=== PATIENT | female | born 1945 | race Caucasian/White ===

== ENCOUNTER 2017-12-14 10:54 | Outpatient (CLI) ==
--- NOTE | 2017-12-14 12:26 | DI ---
EXAM: Chest two views HISTORY: Cough FINDINGS: Normal cardiac and mediastinal contours. Normal pulmonary vasculature. Lungs are clear. Atherosclerotic calcification of the aorta. No significant abnormality of the bony thorax. IMPRESSION: No acute cardiopulmonary disease
== END 2017-12-14 10:55 | disposition home or self-care (01) ==
LOC: RAD 10:54
PROVIDERS: ATTEND Internal Medicine
DX: R05 Cough (principal)

== ENCOUNTER 2018-03-08 10:33 | Inpatient (IN) ==
[2018-03-08 11:15] VITALS: BMI 31.1
[2018-03-08] MEDS ORDERED: VISTARIL INJ IM PRN (11:18)
[2018-03-08] MEDS ORDERED: MORPHINE 4 MG/ML VIAL IVP PRN (11:18)
[2018-03-08] MEDS ORDERED: NITROSTAT SL PRN (11:18)
[2018-03-08] MEDS ORDERED: TYLENOL PO PRN (11:18)
[2018-03-08] MEDS ORDERED: ATROPINE SULFATE PFS IVP PRN (11:18)
[2018-03-08] MEDS: SODIUM CHLORIDE 1,000 ML IV SCH (11:53)
[2018-03-08] MEDS ORDERED: ULTRAM PO PRN (11:59)
[2018-03-08] MEDS ORDERED: DICLOFENAC SODIUM 1 GM TP PRN (11:59)
[2018-03-08] MEDS: ZITHROMAX PO SCH (12:04)
[2018-03-08] MEDS: ROCEPHIN 1 GM in SODIUM CHLORIDE 50 ML IV SCH (12:05)
[2018-03-08] MEDS: SOLU-CORTEF 250 MG IVP SCH ×2 (13:14→21:42)
[2018-03-08] MEDS: ATIVAN PO SCH (13:17)
[2018-03-08] MEDS: NEURONTIN PO SCH (13:17)
[2018-03-08] MEDS: BETAPACE PO SCH ×2 (13:17→21:24)
[2018-03-08] MEDS: MULTIVITAMIN TABLET PO SCH (13:18)
[2018-03-08] MEDS: COLESTID PO SCH ×2 (13:18→21:23)
[2018-03-08] MEDS: ZYRTEC PO SCH (13:19)
[2018-03-08] MEDS: ZETIA PO SCH (13:19)
--- NOTE | 2018-03-08 13:35 | CT ---
Exam: CT PE protocol with intravenous contrast and 3-D MIP reformatted images. Comparison: Chest x-ray performed 12/14/2017. Reason for exam: Shortness of air. FINDINGS: Consolidations and ground-glass are seen in the right upper, right middle, and right lower lobes. Specifically in the perihilar regions. No pleural effusion or pneumothorax. The heart is not enlarged. The aorta is normal in course and caliber measuring approximately 3.6 cm at the level of the arch. No main, proximal, or segmental pulmonary arterial filling defect is seen. No suspicious appearing osteoblastic or osteolytic lesions. Impression: 1. No main, proximal, or segmental pulmonary arterial filling defect 2. Consolidations with ground-glass in the right upper, right middle, and right lower lobes consiste nt with pneumonia. Imaging is recommended to document resolution
[2018-03-08] MEDS ORDERED: NON-FORMULARY MEDICATION (Rivaroxaban [Xarelto] 20 MG) PO SCH (17:00)
[2018-03-08] MEDS ORDERED: XARELTO PO SCH (17:00)
[2018-03-08] MEDS ORDERED: XOPENEX 1.25 MG NEB STA (20:31)
[2018-03-09] MEDS: SODIUM CHLORIDE 1,000 ML IV SCH (01:45)
[2018-03-09] MEDS: XOPENEX 1.25 MG NEB SCH ×5 (05:45→22:50)
[2018-03-09] MEDS: TROSPIUM CHLORIDE 60 MG PO SCH (06:06)
[2018-03-09] MEDS: SOLU-CORTEF 250 MG IVP SCH ×3 (06:13→20:58)
[2018-03-09] MEDS ORDERED: COLESTID PO SCH (06:30)
[2018-03-09] MEDS: ZITHROMAX PO SCH (08:52)
[2018-03-09] MEDS: BETAPACE PO SCH ×2 (08:52→20:59)
[2018-03-09] MEDS: ZETIA PO SCH (08:52)
[2018-03-09] MEDS: ZYRTEC PO SCH (08:52)
[2018-03-09] MEDS: ROCEPHIN 1 GM in SODIUM CHLORIDE 50 ML IV SCH (08:52)
[2018-03-09] MEDS: ASPIRIN EC PO SCH (08:52)
[2018-03-09] MEDS: NEURONTIN PO SCH (08:52)
[2018-03-09] MEDS: MULTIVITAMIN TABLET PO SCH (08:53)
[2018-03-09] MEDS: ATIVAN PO SCH ×2 (11:38→20:59)
[2018-03-09] MEDS: XARELTO PO SCH (17:15)
[2018-03-09] MEDS: COLESTID PO SCH (21:04)
[2018-03-10] MEDS: SOLU-CORTEF 250 MG IVP SCH ×3 (04:20→21:22)
[2018-03-10] MEDS: XOPENEX 1.25 MG NEB SCH ×4 (05:00→22:03)
[2018-03-10] MEDS: COLESTID PO SCH ×2 (05:35→21:18)
[2018-03-10] MEDS: TROSPIUM CHLORIDE 60 MG PO SCH (07:37)
[2018-03-10] MEDS: ROCEPHIN 1 GM in SODIUM CHLORIDE 50 ML IV SCH (08:44)
[2018-03-10] MEDS: NEURONTIN PO SCH (08:45)
[2018-03-10] MEDS: ZITHROMAX PO SCH (08:45)
[2018-03-10] MEDS: ASPIRIN EC PO SCH (08:45)
[2018-03-10] MEDS: ZYRTEC PO SCH (08:45)
[2018-03-10] MEDS: ZETIA PO SCH (08:45)
[2018-03-10] MEDS: MULTIVITAMIN TABLET PO SCH (08:45)
[2018-03-10] MEDS: BETAPACE PO SCH ×2 (08:45→21:18)
--- NOTE | 2018-03-10 11:16 | PCM.PROG ---
Attending Provider: ATTENDING PROVIDER: Dr. MELISSA YOUSIF This patient is seen with Alma Delia Olvera, Nurse Practitioner. DATE OF SERVICE: 03/10/18 SUBJECTIVE: This 72 year old WHITE/ F was hospitalized 03/08/18. The patient is lying in bed, alert. Cough is improved. Decreased blood in sputum. No fever. Shortness of breath has improved. REVIEW OF SYSTEMS: CONSTITUTIONAL: No night sweats. No fatigue, malaise, lethargy. No fever or chills. HEENT: Eyes: No visual changes. No eye pain. No eye discharge. ENT: No runny nose. No epistaxis. No sinus pain. No odynophagia. No congestion. RESPIRATORY: Cough and congestion. No hemoptysis. Shortness of breath improved. CARDIOVASCULAR: No angina symptoms. No CHF symptoms. No atypical chest pain for CAD. No palpitations. No orthopnea.. GASTROINTESTINAL: No abdominal pain. No nausea or vomiting. No diarrhea or constipation. No hematemesis. No hematochezia. GENITOURINARY: No urgency. No frequency. No dysuria. No hematuria. No obstructive symptoms. No discharge. No pain. No significant abnormal bleeding. MUSCULOSKELETAL: No musculoskeletal pain; no joint swelling. NEUROLOGICAL: Awake, alert, oriented to time, place and person. No headache. No neck pain. No syncope. No seizures. No dizziness. PSYCHIATRIC: Not anxious. No depression. No suicidal thoughts. No homicidal thoughts. SKIN: No rash. No lesions. No wounds. ENDOCRINE: No unexplained weight loss. No weight gain. HEMATOLOGIC/LYMPHATIC: No anemia. No purpura. No petechiae. No prolonged or excessive bleeding. No palpable lymph nodes. PHYSICAL EXAMINATION: GENERAL: The patient is awake, alert and oriented, lying in bed in no distress. VITAL SIGNS: Temperature 98.0 F, Pulse 79, Respiratory Rate 20, BP 144/75, Pulse Ox 92% HEENT: Head normocephalic, atraumatic. Eyes: Extraocular muscles are intact. Pupils are equal, round and reactive to light and accommodation. Ears: No lesions. Nose appeared normal. Throat: No exudate or erythema. NECK: Supple. No JVD, no carotid bruit. No lymphadenopathy or thyromegaly. LUNGS: Diminished breath sounds right side. Clear to auscultation. Percussion note normal. Chest symmetrical. HEART: S1, S2, no S3. No murmurs. No cyanosis or clubbing. No ascites. Pulses: Dorsalis pedis and posterior tibial pulses +1 to +2 both sides. ABDOMEN: Soft. Non-tender. Bowel sounds active. No CVA tenderness. No mass felt. EXTREMITIES: No edema. Full range of motion of all extremities, equal. NEUROLOGIC: No focal deficit. Cranial nerves II through XII are grossly intact. No headache, no double vision or headache. SKIN: Not dry. Intact. Turgor-normal. LYMPHATIC: No palpable lymph nodes/no lymphedema. MUSCULOSKELETAL: Normal joints with no swelling. Muscle tone is normal. LAB REVIEW: 03/10/18 04:30 03/10/18 04:30 03/10/18 04:30: Sodium 141, Potassium 3.9, Chloride 108 H, Carbon Dioxide 26, Anion Gap 10.9, BUN 14, Creatinine 0.75, Estimated GFR (MDRD) 76.00, BUN/ Creatinine Ratio 18.66, Glucose 120 H, Calcium 9.0, Total Bilirubin 0.5, AST 26 , ALT 30, Alkaline Phosphatase 54, Total Protein 5.5 L, Albumin 3.0 L, Globulin 2.5, Albumin/Globulin Ratio 1.20 03/10/18 04:30: WBC 11.25 H D, RBC 3.56 L, Hgb 10.7 L, Hct 31.8 L, MCV 89.3, MCH 30.1, MCHC 33.6, RDW Coeff of Jose 13.2, Plt Count 152, Immature Gran % (Auto ) 0.4, Neut % (Auto) 84.7, Lymph % (Auto) 10.4, [place] % (Auto) 4.4, Eos % (Auto) 0.0, Baso % (Auto) 0.1, Immature Gran # (Auto) 0.1, Neut # (Auto) 9.5 H, Lymph # (Auto) 1.2, [place] # (Auto) 0.5, Eos # (Auto) 0.0, Baso # (Auto) 0.0 03/08/18 12:30: Mycoplasma pneumon IgG 447 H, Mycoplasma pneumon IgM < 770 ASSESSMENT: . 1. Right upper middle and lower lobe pneumonia 2. Shortness of breath resolved 3. History of atrial fibrillation PLAN: 1. Anticipate d/c home tomorrow Plan and coordination of the patient's care discussed in the presence of Manufacturing Industrial Engineer and nurse. CONDITION: Stable SCRIBED BY: CIARRA OBRIEN Production Cook scribed while in presence of service performed by Dr. Yousif/Alma Delia Olvera APRN on 03/10/18 ([id number])
--- NOTE | 2018-03-10 11:29 | PN ---
DATE OF SERVICE: 03/09/18 SUBJECTIVE: 72 year old female hospitalized with cough and shortness of breath. The patient has pneumonia in right lung. The patient's condition has improved and she feeling a lot better. REVIEW OF SYSTEMS: CONSTITUTIONAL: No night sweats. No fatigue, malaise, lethargy. No fever or chills. HEENT: Eyes: No visual changes. No eye pain. No eye discharge. ENT: No runny nose. No epistaxis. No sinus pain. No sore throat. No odynophagia. No congestion. RESPIRATORY: Mild cough, no congestion. No hemoptysis. No shortness of breath. CARDIOVASCULAR: No angina symptoms. No CHF symptoms. No atypical chest pain for CAD. No palpitations. No orthopnea. GASTROINTESTINAL: No abdominal pain. No nausea or vomiting. No diarrhea or constipation. No hematemesis. No hematochezia. Appetite has improved. GENITOURINARY: No urgency. No frequency. No dysuria. No hematuria. No obstructive symptoms. No discharge. No pain. No significant abnormal bleeding. MUSCULOSKELETAL: No musculoskeletal pain; no joint swelling. NEUROLOGICAL: No headache. No neck pain. No syncope. No seizures. No dizziness. PSYCHIATRIC: Not anxious. No depression. No suicidal thoughts. No homicidal thoughts. SKIN: No rash. No lesions. No wounds. ENDOCRINE: No unexplained weight loss. No weight gain. HEMATOLOGIC/LYMPHATIC: No anemia. No purpura. No petechiae. No prolonged or excessive bleeding. No palpable lymph nodes. PHYSICAL EXAMINATION: GENERAL: The patient is oriented to time, place and person. VITAL SIGNS: Temperature 97.9, pulse 80, respiratory rate 14, blood pressure 110/74 and pulse ox 97%. HEENT: Head normocephalic, atraumatic. Eyes: Extraocular muscles are intact. Pupils are equal, round and reactive to light and accommodation. Ears: No lesions. Nose appeared normal. Throat: No exudate or erythema. NECK: Supple. No JVD, no carotid bruit. No lymphadenopathy or thyromegaly. LUNGS: Few creps on the right side. Clear to auscultation. Percussion note normal. Chest symmetrical. HEART: S1, S2, no S3. No murmurs. No cyanosis or clubbing. No ascites. Pulses: Dorsalis pedis and posterior tibial pulses +1 to +2 both sides. ABDOMEN: Soft. Nontender. Bowel sounds active. No CVA tenderness. No mass felt. EXTREMITIES: No edema. Full range of motion of all extremities, equal. NEUROLOGIC: No focal deficit. Cranial nerves II through XII are grossly intact. No headache, no double vision or headache. SKIN: Not dry. Intact. Turgor - normal. LYMPHATIC: No palpable lymph nodes/no lymphedema. MUSCULOSKELETAL: Normal joints with no swelling. Muscle tone is normal. LABS: EKG atrial fibrillation, ST-T wave changes noted. Hgb 11.4, hct 34, WBC 17,000 normal differential, creatinine 0.7, BUN 13. ASSESSMENT: 1. Pneumonia, seems to be responding to Rocephin and Zithromax PLAN: 1. Steroids 2. NEBS 3. Will discontinue IV fluids 4. Her appetite is better 5. We will put her on Regular diet CONDITION: Stable. TIME SPENT: More than 30 minutes. Plan and coordination of the patient's care discussed in the presence of nurse. FERNANDO
--- NOTE | 2018-03-10 12:42 | HP ---
DATE OF SERVICE: 03/08/18 REASON FOR HOSPITALIZATION/ HISTORY OF PRESENT ILLNESS: Sinus drainage, gagging, wheezing and vomiting x1-blood. The patient has been coughing up blood with shortness of breath with chills with AM. PAST MEDICAL HISTORY: Atrial fibrillation Bladder spasms Anemia Osteoarthritis Hypertension PAST SURGICAL HISTORY: Gallbladder Hysterectomy 1990 REVIEW OF SYSTEMS: CONSTITUTIONAL: Fever, Fatigue. HEENT: Sinus drainage, no sore throat. RESPIRATORY: Cough, no congestion. Hemoptysis. CARDIOVASCULAR: No atypical chest pain for coronary artery disease. No angina , CHF symptoms, palpitations. Shortness of breath. GASTROINTESTINAL: No melena or abdominal pain. No GERD.Vomiting. GENITOURINARY: No hematuria, no prostatism, no polyuria. PRECONSTRUCTION MANAGER: No blackout, no dizziness, no headache, no double vision. MUSCULOSKELETAL: Osteoarthritis pain, no joint swelling. ENDOCRINE: No weight loss, no weight gain. SKIN: Not dry, no rash. PSYCHIATRIC: Not anxious, no depression, no suicidal thoughts, no homicidal thoughts. SOCIAL HISTORY: Marital Status: Alcohol Usage: No. Tobacco Usage: No. FAMILY HISTORY: Father prostate cancer Mother pancreatic cancer Brother 0 Sister 0 MEDICATIONS: Ativan 0.5mg PO daily PRN Betapace 80mg PO twice a day Celebrex 200mg PO three times per week PRN Colestid 1 gram PO twice a day Lomotil 2.5-0.025PO daily PNR Neurontin 300mg PO daily [place] XR 60mg PO daily Voltaren 1% gel apply two g to the affected area by topical route three times per day PRN Zetia 10mg tablet PO daily Cetirizine 10mg PO daily Tramadol 50mg PO two time per day as needed PRN Xarelto 20mg PO daily Calcium with Vitamin D ALLERGIES: Amoxil Codeine Crestor Erythrocin Opioids Penicillins Sulfa Tetracycline PHYSICAL EXAMINATION: V/S: Pulse 107, blood pressure 102/78, temperature 98.4, oxygen saturation 94%. GENERAL APPEARANCE: Oriented times three. Pale, sweating. HEENT: Normal. NECK: No JVP, no bruits. RESPIRATORY: Decreased breath sounds with few creps. CARDIOVASCULAR: S1, S2, no S3, no murmurs. Irregular, tachy. No cyanosis, clubbing. No ascites. GI/ABDOMEN: No tenderness. Bowel sounds are active. EXTREMITIES: edema, pulses +1, equal. PRECONSTRUCTION MANAGER: Deep tendon reflexes, sensory, motor and gait all normal. RECTAL: 05/19 Dr. Green/PELVIC: Dr. Griffin, Mammogram 2017 [facility]. LABS: CTE with PE protocol shows consolidations, ground glass in right upper, middle and lower lobes consistent with pneumonia. ABG's on room air pH 7.497, pCO2 30.8 , pO2 62, base excesses of 1, bicarb 23.8, TCO2 25, O2 98. Sodium 139, potassium 3.9, BUN 14, creatinine 0.84, glucose 106, troponin 0.6420. Urine 2+ blood, 1+ ketones, WBC 20.24, hgb 13.1, hct 39.4, plt count 178. ASSESSMENT: 1. Cough 2. Shortness of breath 3. Hemoptysis 4. Atrial fibrillation with increased RVR 5. Atrial fibrillation-Xarelto 6. Anemia 7. Dyslipidemia 8. Generalized osteoarthritis 9. 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 Discontinue Celebrex 2. Routine Telemetry orders 3. CBC/CMP now and daily 4. Chest x-ray now 5. Tylenol 650mg Q 4 hours PRN fever 6. O2 @ 1-2 liters PRN nasal canula 7. Rocephin 1 gram IV daily 8. Zithromax 500mg PO daily x3 days 9. Sputum culture 10.Blood culture x2 11.ABG on room air 12.CT protocol for PE 13.Solu-Cortef 125mg IV Q 8 hours 14.Normal Saline at 75cc hour. 15.Legionella and Mycoplasma titer TIME SPENT: More than 70 minutes. MTDD
--- NOTE | 2018-03-10 15:48 | DI ---
EXAM: CHEST FRONTAL AND LATERAL VIEWS HISTORY: Abnormal CT indicating right-sided infiltrates, radiographic follow-up. COMPARISON: CT chest of 03/08/2018 FINDINGS: Heart size upper limit normal. There is mild atherosclerotic disease suggested. Patchy d ensities are seen in the mid to lower right lung although this is probably improved since recent CT. Left lung clear. No pleural fluid. IMPRESSION: Probable improvement in right lung infiltrates. Follow-up chest imaging is recommended to assure com plete clearance.
[2018-03-10] MEDS: XARELTO PO SCH (17:35)
[2018-03-10] MEDS: ATIVAN PO SCH (21:18)
[2018-03-11] MEDS: XOPENEX 1.25 MG NEB SCH ×2 (04:38→11:17)
[2018-03-11] MEDS: COLESTID PO SCH (05:36)
[2018-03-11] MEDS: TROSPIUM CHLORIDE 60 MG PO SCH (05:38)
[2018-03-11] MEDS: SOLU-CORTEF 250 MG IVP SCH (05:40)
[2018-03-11] MEDS: ZETIA PO SCH (09:08)
[2018-03-11] MEDS: ASPIRIN EC PO SCH (09:09)
[2018-03-11] MEDS: BETAPACE PO SCH (09:09)
[2018-03-11] MEDS: NEURONTIN PO SCH (09:09)
[2018-03-11] MEDS: MULTIVITAMIN TABLET PO SCH (09:09)
[2018-03-11] MEDS: ZYRTEC PO SCH (09:09)
[2018-03-11] MEDS: ROCEPHIN 1 GM in SODIUM CHLORIDE 50 ML IV SCH (09:11)
--- NOTE | 2018-03-11 09:28 | PCM.PROG ---
Attending Provider: ATTENDING PROVIDER: Dr. MELISSA YOUSIF This patient is seen with Alma Delia Olvera, Nurse Practitioner. DATE OF SERVICE: 03/11/18 SUBJECTIVE: This 72 year old WHITE/ F was hospitalized 03/08/18. The patient is sitting in bed, alert. She is no longer short of breath. She has been afebrile. The chest x-ray showed improvement yesterday. The patient is ready to be discharged. Eating well. The patient is up and about. REVIEW OF SYSTEMS: CONSTITUTIONAL: Fatigue. No night sweats. No malaise, lethargy. No fever or chills. HEENT: Eyes: No visual changes. No eye pain. No eye discharge. ENT: No runny nose. No epistaxis. No sinus pain. No odynophagia. No congestion. RESPIRATORY: Cough and congestion. No hemoptysis. No shortness of breath. CARDIOVASCULAR: No angina symptoms. No CHF symptoms. No atypical chest pain for CAD. No palpitations. No orthopnea.. GASTROINTESTINAL: No abdominal pain. No nausea or vomiting. No diarrhea or constipation. No hematemesis. No hematochezia. GENITOURINARY: No urgency. No frequency. No dysuria. No hematuria. No obstructive symptoms. No discharge. No pain. No significant abnormal bleeding. MUSCULOSKELETAL: No musculoskeletal pain; no joint swelling. NEUROLOGICAL: Awake, alert, oriented to time, place and person. No headache. No neck pain. No syncope. No seizures. No dizziness. PSYCHIATRIC: Not anxious. No depression. No suicidal thoughts. No homicidal thoughts. SKIN: No rash. No lesions. No wounds. ENDOCRINE: No unexplained weight loss. No weight gain. HEMATOLOGIC/LYMPHATIC: No anemia. No purpura. No petechiae. No prolonged or excessive bleeding. No palpable lymph nodes. PHYSICAL EXAMINATION: GENERAL: The patient is awake, alert and oriented, lying in bed in no distress. VITAL SIGNS: Temperature 98.0 F, Pulse 62, Respiratory Rate 20, BP 160/83, Pulse Ox 97% HEENT: Head normocephalic, atraumatic. Eyes: Extraocular muscles are intact. Pupils are equal, round and reactive to light and accommodation. Ears: No lesions. Nose appeared normal. Throat: No exudate or erythema. NECK: Supple. No JVD, no carotid bruit. No lymphadenopathy or thyromegaly. LUNGS: Diminished breath sounds on the right side. Clear to auscultation. Percussion note normal. Chest symmetrical. HEART: S1, S2, no S3. No murmurs. No cyanosis or clubbing. No ascites. Pulses: Dorsalis pedis and posterior tibial pulses +1 to +2 both sides. ABDOMEN: Soft. Non-tender. Bowel sounds active. No CVA tenderness. No mass felt. EXTREMITIES: No edema. Full range of motion of all extremities, equal. NEUROLOGIC: No focal deficit. Cranial nerves II through XII are grossly intact. No headache, no double vision or headache. SKIN: Not dry. Intact. Turgor-normal. LYMPHATIC: No palpable lymph nodes/no lymphedema. MUSCULOSKELETAL: Normal joints with no swelling. Muscle tone is normal. LAB REVIEW: 03/11/18 05:00 03/11/18 05:00 03/11/18 05:00: Sodium 139, Potassium 3.6, Chloride 105, Carbon Dioxide 26, Anion Gap 11.6, BUN 13, Creatinine 0.70, Estimated GFR (MDRD) 83.00, BUN/ Creatinine Ratio 18.57, Glucose 105, Calcium 8.7, Total Bilirubin 0.4, AST 28, ALT 36, Alkaline Phosphatase 60, Total Protein 5.5 L, Albumin 3.4, Globulin 2.1 , Albumin/Globulin Ratio 1.62 03/11/18 05:00: WBC 9.80, RBC 3.63 L, Hgb 10.9 L, Hct 32.4 L, MCV 89.3, MCH 30.0 , MCHC 33.6, RDW Coeff of Jose 13.1, Plt Count 173, Immature Gran % (Auto) 0.8, Neut % (Auto) 82.4, Lymph % (Auto) 12.0, [place] % (Auto) 4.7, Eos % (Auto) 0.0, Baso % (Auto) 0.1, Immature Gran # (Auto) 0.1, Neut # (Auto) 8.1 H, Lymph # ( Auto) 1.2, [place] # (Auto) 0.5, Eos # (Auto) 0.0, Baso # (Auto) 0.0 03/08/18 11:40: L.pneumophila S1-6 Abs < 0.91 ASSESSMENT: 1. Right upper middle and lower lobe pneumonia - improving 2. Shortness of breath resolved 3. History of atrial fibrillation PLAN: 1. Omnicef 300 mg b.i.d. for 7 days 2. D/C home 3. Prednisone 10 mg b.i.d. times four days then daily for three days 4. Followup next week on with Alma Delia Olvera APRN/Dr. Yousif. 5. Discussed with the patient side effect of diarrhea with antibiotics and advised the patient to eat yogurt. Plan and coordination of the patient's care discussed in the presence of Border Machine Operator and nurse. CONDITION: Stable SCRIBED BY: CIARRA OBRIEN Rolling Mill Operator scribed while in presence of service performed by Dr. Yousif/Alma Delia Olvera APRN on 03/11/18 ([id number])
--- NOTE | 2018-03-11 10:02 | CM.DICTOOL ---
ADMISSION: 03/08/18 10:33 DISCHARGE: MARCH 11, 2018 DATE OF SERVICE: 03/11/18 FINAL DIAGNOSIS PNEUMONIA PER CT, RIGHT LUNG HEMOPTYSIS HYPERTENSION DYSLIPIDEMIA ANEMIA ATRIAL FIBRILLATION ( ON XARELTO) ANXIETY OSTEOARTHRITIS CHOLECYSTECTOMY HYSTERECTOMY LAST VITALS Temp Pulse Resp BP Pulse Ox 98.0 F 62 20 160/83 H 97 03/11/18 06:00 03/11/18 06:00 03/11/18 06:00 03/11/18 06:00 03/11/18 06:00 TAKE THESE MEDICATIONS AT HOME Cetirizine HCl (Zyrtec) 10 mg PO DAILY [facility] Last Admin: 03/11/18 09:09 Dose: 10 mg Colestipol HCl (Colestid) 1 gm PO 0630,2100 [facility] Last Admin: 03/11/18 05:36 Dose: 1 gm Ezetimibe (Zetia) 10 mg PO DAILY [facility] Last Admin: 03/11/18 09:08 Dose: 10 mg Gabapentin (Neurontin) 300 mg PO DAILY [facility] Last Admin: 03/11/18 09:09 Dose: 300 mg Lorazepam (Ativan) 0.5 mg PO DAILY Last Admin: 03/10/18 21:18 Dose: 0.5 mg Multivitamins (Multivitamin Tablet) 1 tab PO DAILY [facility] Last Admin: 03/11/18 09:09 Dose: 1 tab Non-Formulary Medication (Diclofenac Sodium) 1 gm TP TID PRN PRN Reason: Joint Pain Non-Formulary Medication (Trospium Chloride [Trospium Chloride Er]) 60 mg PO QDAC [facility] Last Admin: 03/11/18 05:38 Dose: Not Given Rivaroxaban (Xarelto) 20 mg PO 1800 [facility] Last Admin: 03/10/18 17:35 Dose: 20 mg Sotalol HCl (Betapace) 80 mg PO BID [facility] Last Admin: 03/11/18 09:09 Dose: 80 mg Tramadol HCl (Ultram) 50 mg PO BID PRN PRN Reason: Pain Celecoxib (Celebrex) 200 mg PO THREE TIMES WEEKLY Last Admin: Omnicef 300 mg BID for 7 days Last Admin: Prednisone 10 mg BID for 4 days, then daily for 3 days Last Admin: ALLERGIES adhesive Adverse Reaction (Intermediate, Verified 03/08/18 11:37) latex Adverse Reaction (Intermediate, Verified 03/08/18 11:37) DISCONTINUED MEDICATIONS None NEW PRESCRIPTIONS: Omnicef 300 mg BID for 7 days Prednisone 10 mg BID for 4 days, then daily for 3 days Take with food SMOKING: Not Applicable DISEASE SPECIFIC EDUCATION: Pneumonia Prescriptions Use of Steroids Activity LAB REVIEW: 03/11/18 05:00 03/11/18 05:00 03/11/18 05:00: Sodium 139, Potassium 3.6, Chloride 105, Carbon Dioxide 26, Anion Gap 11.6, BUN 13, Creatinine 0.70, Estimated GFR (MDRD) 83.00, BUN/ Creatinine Ratio 18.57, Glucose 105, Calcium 8.7, Total Bilirubin 0.4, AST 28, ALT 36, Alkaline Phosphatase 60, Total Protein 5.5 L, Albumin 3.4, Globulin 2.1 , Albumin/Globulin Ratio 1.62 03/11/18 05:00: WBC 9.80, RBC 3.63 L, Hgb 10.9 L, Hct 32.4 L, MCV 89.3, MCH 30.0 , MCHC 33.6, RDW Coeff of Jose 13.1, Plt Count 173, Immature Gran % (Auto) 0.8, Neut % (Auto) 82.4, Lymph % (Auto) 12.0, [place] % (Auto) 4.7, Eos % (Auto) 0.0, Baso % (Auto) 0.1, Immature Gran # (Auto) 0.1, Neut # (Auto) 8.1 H, Lymph # ( Auto) 1.2, [place] # (Auto) 0.5, Eos # (Auto) 0.0, Baso # (Auto) 0.0 03/08/18 11:40: L.pneumophila S1-6 Abs < 0.91 PLAN: Discharge home Diet: Regular. Drink plenty of liquids Eat yogurt daily Activity: Gradually resume as tolerated No outside activity until after seen in office Mrs. Long has requested Full Code status An appointment is scheduled with Dr. Atkinson/Alma Delia Olvera APRN on March 17 at noon Mrs. Long is alert and oriented x 3. She is independent with Activities of Daily Living. She is ambulatory in the room and hallway without use of assistive device. Meal intakes are good at 100%. No abdominal pain, nausea or diarrhea reported. Skin is intact and free of decubitus ulcer, rashes or irritation. Mrs. Long has been instructed to return to the ER if any chills/ fever, shortness of air or change in sputum production. Da Atkinson MD Alma Delia Olvera APRN
[2018-03-11 11:27] VITALS: BP 149/100; TEMP 97.3
--- NOTE | 2018-03-14 11:23 | PN ---
DATE OF SERVICE: 03/10/18 SUBJECTIVE: The patient was seen with the Nurse Practitioner. The patient is feeling better. She is being treated for pneumonia with Zithromax and Rocephin. She has responded very well with antibiotics, NEBS and breathing treatments. Appetite is improving. CONDITION: Improving TIME SPENT: More than 30 minutes. Plan and coordination of the patient's care discussed in the presence of nurse. FERNANDO
--- NOTE | 2018-03-17 09:36 | DS ---
DATE OF SERVICE: 03/11/18 FINAL DIAGNOSIS: 1. Pneumonia per CT, Right lung 2. Hemoptysis 3. Hypertension 4. Dyslipidemia 5. Anemia 6. Atrial fibrillation (on Xarelto) 7. Anxiety 8. Osteoarthritis 9. Cholecystectomy 10.Hysterectomy LAST VITALS: Temperature 98, pulse 62, respiratory rate 20, blood pressure 160/83 and pulse ox 97%. DISCHARGE INSTRUCTIONS: Discharge home. Mrs. Long has requested full code status. An appointment is scheduled with Dr. Atkinson/Alma Delia Olvera APRN on March 17 at noon MEDICATIONS AT DISCHARGE: Zyrtec 10mg PO daily Colestid 1gram PO 0630, 2100 Zetia 10mg Po daily Neurontin 300mg Po daily Ativan 0.5mg PO daily Multivitamin 1 tablet PO daily Diclofenac 1 gram TP three times a day PRN Trospium Chloride 60mg PO QDAC Xarelto 20mg Po 1800 Betapace 80mg Po twice a day Ultram 50mg Po twice a day PRN Celebrex 200mg PO three times weekly Omnicef 300mg PO twice a day for 7 days Prednisone 10mg Twice a day for 4 days then daily for 3 days. ALLERGIES: Adhesive Latex NEW PRESCRIPTIONS: Omnicef 300mg twice a day for 7 days Prednisone 10mg twice a day for 4 days, then daily for 3 days. Take with food DIET INSTRUCTIONS: Regular. Drink plenty of liquids Eat yogurt daily ACTIVITY: Gradually resume as tolerated. No outside activity until after seen in office. SMOKING: N/A DISEASE SPECIFIC EDUCATION: Pneumonia Prescriptions Use of steroids Activity HOSPITAL COURSE: This is a 72 year old white female who presented to our office on 03/08/18 with shortness of breath. She is slightly tachycardiac. She says that she had had a slight cough but this only last for a day or so. She is feeling very weak and tired and unable to hold her head up. This is very abnormal for her. She does have a history of atrial fibrillation but her rate has been well controlled. She was initially worked up for possible PE due to acute onset of shortness of breath. There was no PE however CT did reveal pneumonia in the right upper, middle and lower lobes. She had had some hemoptysis at home and as well as during her initial stay at the hospital. She was admitted and placed on Rocephin 1 gram IV daily along with Zithromax 500mg PO daily for 3 days. She was started on Solu-Cortef 125mg IV Q 8 hours and given oxygen at 1-2 liters. She was continued on her home medications including Xarelto. She was placed on routine telemetry orders. She does go in and out of atrial fibrillation. The patient had showed steady improvement with IV NPO antibiotics. Yesterday she was feeling better and she wasn't having to wear oxygen. Today on rounds she was sitting up in bed and she had been up and about walking around. She was not short of breath. She was still feeling somewhat fatigued. Her cough is improved and she was no longer having any blood in her sputum for the past 36 hours. She has no had fever since admission. Repeat chest x-ray yesterday showed slight improvement in the right lung with pneumonia. We will discharge her today in stable condition. Temperature 98, heart rate 62, respiratory rate 24, pulse ox 97% on room air, blood pressure 150/83. We will discharge her on Omnicef 300mg twice a day for the next 7 days as well as 10mg twice a day for 4 days and then daily for three days. She is instructed to stay at home over the weekend, stay inside. 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 If she begins running fever or shortness of breath again she has been instructed to go straight to the emergency room. She can gradually resume her activity as tolerated. We will followup with her next in the office. She is discharged in stable condition. TIME SPENT: More than 60 minutes. FERNANDO
== END 2018-03-11 12:23 | disposition home or self-care (01) | DRG 194 ==
LOC: MEDSURG A 10:33
PROVIDERS: ADMIT Internal Medicine; ATTEND Internal Medicine
DX: J18.9 Pneumonia, unspecified organism (principal); R04.2 Hemoptysis; I10 Essential (primary) hypertension; E78.5 Hyperlipidemia, unspecified; D64.9 Anemia, unspecified; I48.91 Unspecified atrial fibrillation; Z79.01 Long term (current) use of anticoagulants; F41.9 Anxiety disorder, unspecified; M19.90 Unspecified osteoarthritis, unspecified site
CPT/HCPCS: 36415; 80053; 81001; 82550; 82803; 84484; 85025; 86713; 86738; 87040; 87070; 93005; 93010; 94640

== ENCOUNTER 2018-05-27 09:49 | Outpatient (CLI) ==
--- NOTE | 2018-05-27 11:55 | MAMMO ---
EXAM: Bilateral digital screening mammogram (2-D and 3-D) History: Screening Comparison: Bilateral mammogram 06/25/2016 Findings: MLO and CC views of bilateral breasts demonstrate scattered fibroglandular breast parenchy ma. CAD was reviewed by the radiologist. Tomosynthesis was performed. Stable benign bilateral vasc ular calcifications. There are no dominant masses, no suspicious microcalcifications and no architec tural distortions Impression: Benign stable mammogram. Recommend followup routine screening mammography in 1 year. BIRADS 2
== END 2018-05-27 09:50 | disposition home or self-care (01) ==
LOC: RAD 09:49
PROVIDERS: ATTEND Internal Medicine
DX: Z12.31 Encounter for screening mammogram for malignant neoplasm of breast (principal)
CPT/HCPCS: 77067

== ENCOUNTER 2019-06-08 10:28 | Outpatient (CLI) | payer OTHER ==
--- NOTE | 2019-06-09 11:10 | MAMMO ---
EXAM: Bilateral digital screening mammogram (2-D and 3-D) History: Screening Comparison: Bilateral mammogram 05/27/2018 Findings: MLO and CC views of bilateral breasts demonstrate scattered fibroglandular breast parenchy ma. CAD was reviewed by the radiologist. Tomosynthesis was performed. There are no dominant masses , no suspicious microcalcifications and no architectural distortions. Stable benign bilateral vascul ar calcifications. Impression: Benign stable mammogram. Recommend followup routine screening mammography in 1 year. BI-RADS 2, benign
== END 2019-06-08 10:29 | disposition home or self-care (01) ==
LOC: RAD 10:28
PROVIDERS: ATTEND Internal Medicine
DX: Z12.31 Encounter for screening mammogram for malignant neoplasm of breast (principal)

== ENCOUNTER 2023-09-12 16:13 | Inpatient (IN) ==
[2023-09-12 17:00] LABS: BASOPHILS % (AUTO) 0.3 % (0.0-3.0); EOSINOPHILS # (AUTO) 0.1 K/ul (0.0-0.7); EOSINOPHILS % (AUTO) 1.7 % (0.0-7.0); HEMATOCRIT 35.3 % (37.0-47.0); HEMOGLOBIN 11.1 g/dl (12.0-16.0); IMMATURE GRANULOCYTE % (AUTO) 0.3 % (0.0-5.0); LYMPHOCYTES # (AUTO) 1.1 K/uL (0.60-3.4); LYMPHOCYTES % (AUTO) 15.8 (10.0-50.0); MEAN CORPUSCULAR HEMOGLOBIN 30.2 pg (27.0-31.0); MEAN CORPUSCULAR HGB CONC 31.4 (31.8-35.4); MEAN CORPUSCULAR VOLUME 96.2 fl (81.0-99.0); MONOCYTES # (AUTO) 0.7 K/uL (0.4-2.0); MONOCYTES % (AUTO) 9.8 (0-10); NEUTROPHILS % (AUTO) 72.1 % (42.2-75.2); PLATELET COUNT 161 10^3/uL (140-440); RDW COEFFICIENT OF VARIATION 14.5 % (11.6-14.8); RED BLOOD COUNT 3.67 10^6/ul (4.20-5.40); WHITE BLOOD COUNT 6.96 K/ul (4.6-10.2)
--- NOTE | 2023-09-12 17:03 | DI ---
EXAM: CHEST, SINGLE VIEW HISTORY: Shortness of breath COMPARISON: 05/22/2021 IMPRESSION: Cardiomediastinal contours appear stable. There is central pulmonary vascular congestio n. Interstitial infiltrate within both lungs with patchy areas of bibasilar consolidation. These fi ndings may represent a combination of atelectasis, pulmonary edema and/or pneumonia. Blunting of the right lateral costophrenic angle. Small right pleural effusion is not excluded. There is no pneumo thorax.
[2023-09-12 17:09] LABS: ALANINE AMINOTRANSFERASE 21.2 U/L (0-35); ALBUMIN 3.44 g/dL (3.5-5.0); ALKALINE PHOSPHATASE 52.9 U/L (53-141); ASPARTATE AMINO TRANSFERASE 31.2 U/L (14-36); BILIRUBIN,TOTAL 0.6 mg/dL (0.2-1.3); BLOOD UREA NITROGEN 9.9 mg/dL (7-17); CALCIUM 8.32 mg/dL (8.4-10.2); CARBON DIOXIDE 27.6 mmol/L (22-30.0); CREATININE 0.75 mg/dL (0.60-1.30); GLUCOSE 126.3 mg/dL (74-106); POTASSIUM 3.51 mmol/L (3.5-5.1); TOTAL PROTEIN 6.03 g/dL (6.3-8.2)
[2023-09-12] MEDS ORDERED: LASIX IVP ONE (17:24)
--- NOTE | 2023-09-12 17:27 | ED.PDOC ---
General ED Provider: Dr. YOAN JARA DO Chief Complaint: Shortness of Air Time Seen by Provider: 09/12/23 17:23 Information Source: Patient Primary Care Provider: MELISSA YOUSIF MD [facility] Medical History Tick bite W57.XXXA - Bitten or stung by nonvenomous insect and other nonvenomous arthropods, initial encounter (ICD-10) Collagenous colitis diarrhea K52.831 - Collagenous colitis (ICD-10) Hematuria R31.9 - Hematuria, unspecified (ICD-10) Family History Other No known health problems Social History Smoking and tobacco status: Never smoker Alcohol intake: never Substance use type: does not use Special jennifer needs: No Agree to transfusion: Yes Adopted: No Caregiver/support person: No Foster care: No Household members: spouse Housing: house Marital status: M Lives independently: Yes Number of children: 1 service: No senior care: No Current occupational status: retired History of recent travel: No Do you think of yourself as: straight/heterosexual Current gender identity: female Seatbelt use: always Drives intoxicated or rides with intoxicated hazardous materials driver: No Water heater temperature set < 120 degrees: Yes Working smoke detector in home: Yes Fire extinguisher in home: Yes Carbon monoxide detector in home: Yes Surgical History S/P lumpectomy, left breast Dr. Lazo Z98.890 - Other specified postprocedural states (ICD-10) Female Reproductive History Menstrual Hx Hysterectomy: No Hx Tubal Ligation: No Course Course 09/13/23 04:55 09/13/23 04:55 Orders, Labs, Meds: Lab Review 09/12/23 09/12/23 16:53 19:09 WBC 6.96 RBC 3.67 L Hgb 11.1 L Hct 35.3 L MCV 96.2 MCH 30.2 MCHC 31.4 L RDW Coeff of Jose 14.5 Plt Count 161 Immature Gran % (Auto) 0.3 Neut % (Auto) 72.1 Lymph % (Auto) 15.8 [place] % (Auto) 9.8 Eos % (Auto) 1.7 Baso % (Auto) 0.3 Neut # (Auto) 5.0 Lymph # (Auto) 1.1 [place] # (Auto) 0.7 Eos # (Auto) 0.1 Baso # (Auto) 0.0 Immature Gran # (Auto) 0.0 Sodium 138.0 Potassium 3.51 Chloride 106.0 Carbon Dioxide 27.6 Anion Gap 7.91 BUN 9.9 Creatinine 0.75 Estimated GFR (MDRD) 75.00 BUN/Creatinine Ratio 13.20 Glucose 126.3 H Calcium 8.32 L Total Bilirubin 0.60 AST 31.2 ALT 21.2 Alkaline Phosphatase 52.9 L Troponin I < 0.012 NT-Pro-B Natriuret Pep 3070 H Total Protein 6.03 L Albumin 3.44 L Globulin 2.59 Albumin/Globulin Ratio 1.32 SARS CoV-2 RNA Rapid SHANELL Negative Orders Category Date Time Status ECHOCARDIOGRAM 2D-M MODE Routine CARDIO 09/13/23 10:00 Completed EKG-(ED ONLY) Stat CARDIO 09/12/23 16:33 Completed TELEMETRY MONITORING TELE CARE 09/12/23 19:02 Active CBC W/ AUTO DIFF Stat LAB 09/12/23 16:53 Completed COMPREHENSIVE METABOLIC PANEL Stat LAB 09/12/23 16:53 Completed COVID [SARS COV-2 RNA RAPID SHANELL] Stat LAB 09/12/23 19:09 Completed NT-PROBNP(ED) Stat LAB 09/12/23 16:53 Completed TROPONIN I Stat LAB 09/12/23 16:53 Completed Enoxaparin Sodium [Lovenox] Meds 09/12/23 19:07 Discontinued 40 mg SUBCUT ONCE ONE Furosemide [Lasix] Meds 09/12/23 17:24 Discontinued 20 mg IVP ONCE ONE CHEST, 1V AP ONLY Stat RADS 09/12/23 16:33 Completed Medications Generic Name Dose Route Start Last Admin Trade Name Freq PRN Reason Stop Dose Admin Colestipol HCl 1 gm 09/13/23 21:00 Colestipol Hcl 1 Gm Tablet PO 0730,2100 ROCK Ezetimibe 10 mg 09/13/23 09:00 09/13/23 08:08 Ezetimibe 10 Mg Tablet PO 10 mg DAILY ROCK Administration Enoxaparin Sodium 80 mg 09/13/23 21:00 Enoxaparin Sodium 40 Mg/0.4 Ml Syr SUBCUT 2100 ROCK Furosemide 20 mg 09/13/23 06:00 09/13/23 05:17 Furosemide Inj 20 Mg/2 Ml Vial IVP 20 mg BIDAC2 ROCK Administration Gabapentin 300 mg 09/13/23 09:00 09/13/23 08:08 Gabapentin 300 Mg Capsule PO 300 mg DAILY ROCK Administration Loratadine 10 mg 09/13/23 09:00 09/13/23 08:03 Loratadine 10 Mg Tablet PO Not Given DAILY ROCK Lorazepam 0.5 mg 09/12/23 21:19 09/13/23 02:03 Lorazepam 0.5 Mg Tablet PO 0.5 mg DAILY PRN Administration Insomnia Non-Formulary Medication 60 mg 09/13/23 09:45 09/13/23 09:38 Trospium PO 60 mg QDAC2 ROCK Administration Non-Formulary Medication 20 mg 09/13/23 09:00 09/13/23 09:38 Tamoxifen PO 20 mg DAILY ROCK Administration Potassium Chloride 40 meq 09/13/23 15:00 Potassium Chloride 20 Meq Tab PO 09/13/23 15:01 ONCE ONE Pyridoxine HCl 100 mg 09/13/23 09:00 09/13/23 13:14 Vitamin B-6 50 Mg Tablet PO 100 mg QID ROCK Administration Sodium Chloride 1 syr 09/13/23 13:00 09/13/23 13:14 0.9% Sodium Chloride 10 Ml Disp.Syrin IVF 1 syr Q8HR ROCK Administration Sotalol HCl 80 mg 09/12/23 22:00 09/13/23 08:08 Sotalol Hcl 80 Mg Tablet PO 80 mg BID ROCK Administration Tramadol HCl 50 mg 09/12/23 21:19 Tramadol Hcl 50 Mg Tablet PO BID PRN Pain Discontinued Medications Generic Name Dose Route Start Last Admin Trade Name Freq PRN Reason Stop Dose Admin Colestipol HCl 0 gm 09/12/23 21:30 Colestipol Hcl 1 Gm Tablet PO .COMPLEX ROCK Colestipol HCl 1 gm 09/13/23 09:00 Colestipol Hcl 1 Gm Tablet PO BID ROCK Colestipol HCl 1 gm 09/13/23 07:30 09/13/23 07:22 Colestipol Hcl 1 Gm Tablet PO 1 gm 0730,1600 ROCK Administration Enoxaparin Sodium 40 mg 09/12/23 19:07 09/12/23 19:56 Enoxaparin Sodium 40 Mg/0.4 Ml Syr SUBCUT 09/12/23 19:08 40 mg ONCE ONE Administration Furosemide 20 mg 09/12/23 17:24 09/12/23 17:41 Furosemide Inj 20 Mg/2 Ml Vial IVP 09/12/23 17:25 20 mg ONCE ONE Administration Non-Formulary Medication 10 mg 09/13/23 09:00 Cetirizine [Zyrtec] PO DAILY ROCK Potassium Chloride 40 meq 09/13/23 08:37 09/13/23 09:03 Potassium Chloride 20 Meq Tab PO 09/13/23 08:38 40 meq ONCE ONE Administration Sotalol HCl 0 mg 09/12/23 21:30 Sotalol Hcl 80 Mg Tablet PO .COMPLEX ROCK Vital Signs: Temp Pulse Resp BP Pulse Ox 09/12/23 16:36 98.2 F 74 18 176/90 H 97 Discharge Plan Discharge Patient Disposition: ADMITTED INPATIENT Discharge Problem: CHF (congestive heart failure) Qualifiers: Heart failure type: unspecified Heart failure chronicity: acute Qualified Code(s): I50.9 - Heart failure, unspecified ED Provider: YOAN JARA Physician Progress Note: []
[2023-09-12] MEDS ORDERED: LOVENOX SUBCUT ONE (19:07)
[2023-09-12 19:25] LABS: SARS COV-2 RNA RAPID NAAT NEGATIVE (NEGATIVE)
[2023-09-12 20:32] VITALS: BMI 27.8
[2023-09-12] MEDS ORDERED: COLESTID PO SCH (21:30)
[2023-09-12] MEDS ORDERED: BETAPACE PO SCH (21:30)
[2023-09-12] MEDS: BETAPACE PO SCH (21:59)
[2023-09-13] MEDS: ATIVAN PO PRN ×2 (02:03→20:34)
[2023-09-13] MEDS ORDERED: CLARITIN ONE (02:18)
[2023-09-13] MEDS: CLARITIN PO SCH ×2 (02:20→08:03)
[2023-09-13 05:07] LABS: BASOPHILS % (AUTO) 0.2 % (0.0-3.0); EOSINOPHILS # (AUTO) 0.1 K/ul (0.0-0.7); EOSINOPHILS % (AUTO) 1.2 % (0.0-7.0); HEMATOCRIT 34.6 % (37.0-47.0); HEMOGLOBIN 11.2 g/dl (12.0-16.0); IMMATURE GRANULOCYTE % (AUTO) 0.1 % (0.0-5.0); LYMPHOCYTES # (AUTO) 1.7 K/uL (0.60-3.4); LYMPHOCYTES % (AUTO) 18.8 (10.0-50.0); MEAN CORPUSCULAR HEMOGLOBIN 29.9 pg (27.0-31.0); MEAN CORPUSCULAR HGB CONC 32.4 (31.8-35.4); MEAN CORPUSCULAR VOLUME 92.5 fl (81.0-99.0); MONOCYTES # (AUTO) 0.9 K/uL (0.4-2.0); NEUTROPHILS # (AUTO) 6.3 K/ul (2.0-6.9); NEUTROPHILS % (AUTO) 69.7 % (42.2-75.2); PLATELET COUNT 180 10^3/uL (140-440); RDW COEFFICIENT OF VARIATION 14.3 % (11.6-14.8); RED BLOOD COUNT 3.74 10^6/ul (4.20-5.40)
[2023-09-13] MEDS: LASIX IVP SCH ×2 (05:17→16:20)
[2023-09-13 05:23] LABS: ALANINE AMINOTRANSFERASE 20.5 U/L (0-35); ALBUMIN 3.48 g/dL (3.5-5.0); ALKALINE PHOSPHATASE 55.1 U/L (53-141); ASPARTATE AMINO TRANSFERASE 29.5 U/L (14-36); BILIRUBIN,TOTAL 0.8 mg/dL (0.2-1.3); BLOOD UREA NITROGEN 8.4 mg/dL (7-17); CALCIUM 8.47 mg/dL (8.4-10.2); CARBON DIOXIDE 30.9 mmol/L (22-30.0); CHLORIDE 103.5 mmol/L (98-107); CREATININE 0.72 mg/dL (0.60-1.30); GLUCOSE 95.9 mg/dL (74-106); POTASSIUM 3.08 mmol/L (3.5-5.1); SODIUM 137.2 mmol/L (134.5-145); TOTAL PROTEIN 6.2 g/dL (6.3-8.2)
[2023-09-13] MEDS ORDERED: COLESTID PO SCH ×2 (07:30→09:00)
[2023-09-13] MEDS: ZETIA PO SCH (08:08)
[2023-09-13] MEDS: BETAPACE PO SCH ×2 (08:08→20:34)
[2023-09-13] MEDS: NEURONTIN PO SCH (08:08)
[2023-09-13] MEDS: PYRIDOXINE HCL PO SCH ×4 (08:08→20:34)
[2023-09-13] MEDS ORDERED: K-DUR PO ONE ×2 (08:37→15:00)
[2023-09-13] MEDS ORDERED: CETIRIZINE 10 MG PO SCH (09:00)
--- NOTE | 2023-09-13 10:25 | PCM ---
Date of Service Date Seen by Provider: 09/13/23 Time Seen by Provider: 08:30 Admit Day/Time Admission Date: 09/12/23 Admission Time: 19:59 Reason for Admission Chief Complaint: CHF Hospital Provider Hospital Provider: JEANA AREVALO PA-C, [facility] [place] Primary Care Physician Primary Care Physician: MELISSA ATKINSON MD History of Present Illness History of Present Illness: Patient is a 78 year old female from home with pmhx of breast cancer, a fib, overactive bladder, hypertension, hyperlipidemia, anemia, who presented to the ER with worsening SOB. Patient states it started on 09/11. She also developed lower extremity edema which is new for her. No chest pain. Her of many years this week. 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 She had been under an immense amount of stress with this. She denies hx of CHF. She has hx of a fib, which she normally takes xarelto, but is currently on lovenox awaiting a colonoscopy this week. She was found to have elevated BNP in ER. CXR showed pulmonary congestion. She was given lasix 20 IV. She was placed on 2L O2 due to being tachypneic. She was admitted to [facility]. On my evaluation this morning is feeling better, has had 1500 out. States her swelling is improved. Still having some SOB with exertion. Son at bedside. Case Discussed With Case Discussed With: Patient's case was discussed with the ER Physicians, Dr. Rehman. [facility] Medical History Tick bite W57.XXXA - Bitten or stung by nonvenomous insect and other nonvenomous arthropods, initial encounter (ICD-10) Collagenous colitis diarrhea K52.831 - Collagenous colitis (ICD-10) Hematuria R31.9 - Hematuria, unspecified (ICD-10) Surgical History S/P lumpectomy, left breast Dr. Lazo Z98.890 - Other specified postprocedural states (ICD-10) Family History Other No known health problems Social History Smoking and tobacco status: Never smoker Alcohol intake: never Substance use type: does not use Special jennifer needs: No Agree to transfusion: Yes Adopted: No Caregiver/support person: No Foster care: No Household members: spouse Housing: house Marital status: M Lives independently: Yes Number of children: 1 service: No halfway: No Current occupational status: retired History of recent travel: No Do you think of yourself as: straight/heterosexual Current gender identity: female Seatbelt use: always Drives intoxicated or rides with intoxicated 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 Water heater temperature set < 120 degrees: Yes Working smoke detector in home: Yes Fire extinguisher in home: Yes Carbon monoxide detector in home: Yes Allergies Allergies Allergy/AdvReac Type Severity Reaction Status Date / Time Penicillins Allergy Unknown Unknown Verified 09/12/23 16:36 Sulfa (Sulfonamide Allergy Unknown Unknown Verified 09/12/23 16:36 Antibiotics) Tetracyclines Allergy Unknown Rash Verified 09/12/23 16:36 adhesive AdvReac Intermediate Rash Verified 09/12/23 16:36 latex AdvReac Intermediate Rash Verified 09/12/23 16:36 Current Medications Home Medications cetirizine 10 mg tablet (Zyrtec) 10 mg PO DAILY 03/08/18 [History Confirmed 09/12/23 Last Taken 09/12/23] [id number]-vos-zpmha acid 0.4 mg-lycopene 300 mcg-lutein 250 mcg tablet (Centrum Silver) 1 tab PO DAILY 03/08/18 [History Confirmed 09/12/23 Last Taken 09/12/23] cyanocobalamin (vitamin B-12) 1,000 mcg capsule 1,000 mcg PO QDAY 12/17/22 [History Confirmed 09/12/23 Last Taken 09/12/23] tamoxifen 20 mg tablet 20 mg PO QDAY #90 tabs 12/17/22 [Rx Confirmed 09/12/23 Last Taken 09/12/23] trospium 60 mg capsule,extended release 24 hr 60 mg PO QDAC #90 caps 12/17/22 [Rx Confirmed 09/12/23 Last Taken 09/12/23] acetaminophen 500 mg tablet (Tylenol Extra Strength) 500 mg PO BID PRN MILD PAIN 03/25/23 [History Confirmed 09/12/23 Last Taken Unknown] pyridoxine (vitamin B6) 100 mg tablet 100 mg PO QID 03/25/23 [History Confirmed 09/12/23 Last Taken 09/12/23] colestipol 1 gram tablet See Rx Instructions .Route .COMPLEX #180 tabs 04/13/23 [Rx Confirmed 09/12/23 Last Taken 09/12/23] fluticasone propionate 50 mcg/actuation nasal spray,suspension (Flonase Allergy Relief) 1 spray intranasal QDAY #16 grams 05/10/23 [Rx Confirmed 09/12/23 Last Taken Unknown] sotalol 80 mg tablet See Rx Instructions .Route .COMPLEX #180 tabs 06/22/23 [Rx Confirmed 09/12/23 Last Taken 09/12/23] ezetimibe 10 mg tablet (Zetia) 10 mg PO DAILY #90 tabs 07/01/23 [Rx Confirmed 09/12/23 Last Taken 09/12/23] rivaroxaban 20 mg tablet (Xarelto) 20 mg PO 1700 #90 tabs 08/30/23 [Rx Confirmed 09/12/23 Last Taken Unknown] diphenoxylate-atropine 2.5 mg-0.025 mg tablet (Lomotil) 1 tab PO TID PRN diarrhea #20 tabs 09/06/23 [Rx Confirmed 09/12/23 Last Taken Unknown] enoxaparin 80 mg/0.8 mL subcutaneous syringe (Lovenox) 80 mg (0.8 mL) subcut QDAY #5 syringes 09/06/23 [Rx Confirmed 09/12/23 Last Taken 09/12/23] gabapentin 300 mg capsule (Neurontin) 300 mg PO DAILY #90 caps 09/06/23 [Rx Confirmed 09/12/23 Last Taken 09/12/23] tramadol 50 mg tablet 50 mg PO BID PRN Pain #60 tabs 09/06/23 [Rx Confirmed 09/12/23 Last Taken Unknown] celecoxib 200 mg capsule (Celebrex) 200 mg PO 3 TIMES PER WEEK 09/12/23 [History Confirmed 09/12/23 Last Taken 09/10/23] lorazepam 0.5 mg tablet (Ativan) 0.5 mg PO DAILY PRN insomnia 09/12/23 [History Confirmed 09/12/23 Last Taken Unknown] Home Colestipol HCl (Colestipol Hcl 1 Gm Tablet) 1 gm PO 0730,2100 [facility] Ezetimibe (Ezetimibe 10 Mg Tablet) 10 mg PO DAILY [facility] Last Admin: 09/13/23 08:08 Dose: 10 mg Enoxaparin Sodium (Enoxaparin Sodium 40 Mg/0.4 Ml Syr) 80 mg SUBCUT 2100 [facility] Furosemide (Furosemide Inj 20 Mg/2 Ml Vial) 20 mg IVP BIDAC2 [facility] Last Admin: 09/13/23 05:17 Dose: 20 mg Gabapentin (Gabapentin 300 Mg Capsule) 300 mg PO DAILY [facility] Last Admin: 09/13/23 08:08 Dose: 300 mg Loratadine (Loratadine 10 Mg Tablet) 10 mg PO DAILY [facility] Last Admin: 09/13/23 08:03 Dose: Not Given Lorazepam (Lorazepam 0.5 Mg Tablet) 0.5 mg PO DAILY PRN PRN Reason: Insomnia Last Admin: 09/13/23 02:03 Dose: 0.5 mg Non-Formulary Medication (Trospium) 60 mg PO QDAC2 [facility] Last Admin: 09/13/23 09:38 Dose: 60 mg Non-Formulary Medication (Tamoxifen) 20 mg PO DAILY [facility] Last Admin: 09/13/23 09:38 Dose: 20 mg Potassium Chloride (Potassium Chloride 20 Meq Tab) 40 meq PO ONCE ONE Stop: 09/13/23 15:01 Pyridoxine HCl (Vitamin B-6 50 Mg Tablet) 100 mg PO QID [facility] Last Admin: 09/13/23 13:14 Dose: 100 mg Sodium Chloride (0.9% Sodium Chloride 10 Ml Disp.Syrin) 1 syr IVF Q8HR [facility] Last Admin: 09/13/23 13:14 Dose: 1 syr Sotalol HCl (Sotalol Hcl 80 Mg Tablet) 80 mg PO BID [facility] Last Admin: 09/13/23 08:08 Dose: 80 mg Tramadol HCl (Tramadol Hcl 50 Mg Tablet) 50 mg PO BID PRN PRN Reason: Pain Discontinued Medications Colestipol HCl (Colestipol Hcl 1 Gm Tablet) 0 gm PO .COMPLEX ROCK Colestipol HCl (Colestipol Hcl 1 Gm Tablet) 1 gm PO BID [facility] Colestipol HCl (Colestipol Hcl 1 Gm Tablet) 1 gm PO 0730,1600 [facility] Last Admin: 09/13/23 07:22 Dose: 1 gm Enoxaparin Sodium (Enoxaparin Sodium 40 Mg/0.4 Ml Syr) 40 mg SUBCUT ONCE ONE Stop: 09/12/23 19:08 Last Admin: 09/12/23 19:56 Dose: 40 mg Furosemide (Furosemide Inj 20 Mg/2 Ml Vial) 20 mg IVP ONCE ONE Stop: 09/12/23 17:25 Last Admin: 09/12/23 17:41 Dose: 20 mg Non-Formulary Medication (Cetirizine [Zyrtec]) 10 mg PO DAILY [facility] Potassium Chloride (Potassium Chloride 20 Meq Tab) 40 meq PO ONCE ONE Stop: 09/13/23 08:38 Last Admin: 09/13/23 09:03 Dose: 40 meq Sotalol HCl (Sotalol Hcl 80 Mg Tablet) 0 mg PO .COMPLEX ROCK Review of Systems Constitutional: Denies Fever Head: Reports Normocephalic and Atraumatic Throat: Denies Sore Throat or Difficulty Swallowing Cardiovascular: Reports Edema; Denies Chest pain or Chest Pressure Respiratory: Reports Shortness of air; Denies Cough Gastrointestinal: Denies Nausea, Vomiting, Diarrhea, Abdominal pain or Melena Genitourinary: Denies Dysuria or Frequency Dermatologic: Denies Rashes Neurological: Reports Weakness; Denies Headache Physical examination Most Recent Vital Signs: Most Recent Vital Signs Temperature 98.2 F 09/13/23 05:13 Temperature Source Oral 09/13/23 05:13 Temperature Source Oral 09/12/23 16:36 Pulse Rate 76 09/13/23 05:13 Respiratory Rate 16 09/13/23 05:13 Blood Pressure 153/82 H 09/13/23 05:13 Blood Pressure Mean 105 09/13/23 05:13 Blood Pressure Right Arm 192/100 09/12/23 20:18 Blood Pressure Location Right Arm 09/13/23 05:13 Blood Pressure Position Supine 09/13/23 05:13 O2 Sat by Pulse Oximetry 95 09/13/23 09:47 Oxygen Delivery Method Nasal Cannula 09/13/23 09:47 Oxygen Flow Rate 1 09/13/23 09:47 Height 5 ft 7 in 09/12/23 20:18 Weight 174 lb 8 oz 09/13/23 05:15 Telemetry Type Remote Telemetry 09/13/23 07:00 Telemetry Monitoring Continues 09/13/23 07:00 Irregular Telemetry Rate (Approximate) 70-80 BPM 09/13/23 01:00 Telemetry Heart Rate 82 09/13/23 07:00 EKG QRS Interval 0.08 09/13/23 07:00 Telemetry Strip Reading Afib with PVCs 09/13/23 07:00 Appearance: Positive Well-appearing, Well-nourished, No Apparent Distress and Alert and Oriented x3 Skin: Positive [place], Warm and Good Turgor; Negative Rashes HEENT: Positive Normocephalic, Atraumatic and Oral Mucous Moist Neck: Positive Supple and Midline Trachea Chest/Lungs: Positive Clear to Auscultation Bilaterally; Negative Rales, Rhonci or Wheezes Heart: Positive Irregular Rhythm GI/: Positive Soft, Nontender, Bowel Sounds Normal and No Distention Extremities: Positive Edema (+trace edema zaki, improved ) Neurological: Positive Alert, Oriented and Muscle Strength 5/5 in Upper and Lower Extremities Bilaterally Psychiatric: Positive Oriented x4, Appropriate Mood and Appropriate Affect Labs This Visit Labs This Visit: Labs This Visit 09/12/23 09/12/23 09/13/23 16:53 19:09 04:55 WBC 6.96 9.00 RBC 3.67 L 3.74 L Hgb 11.1 L 11.2 L Hct 35.3 L 34.6 L MCV 96.2 92.5 MCH 30.2 29.9 MCHC 31.4 L 32.4 RDW Coeff of Jose 14.5 14.3 Plt Count 161 180 Immature Gran % (Auto) 0.3 0.1 Neut % (Auto) 72.1 69.7 Lymph % (Auto) 15.8 18.8 Lawrence % (Auto) 9.8 10.0 Eos % (Auto) 1.7 1.2 Baso % (Auto) 0.3 0.2 Neut # (Auto) 5.0 6.3 Lymph # (Auto) 1.1 1.7 Lawrence # (Auto) 0.7 0.9 Eos # (Auto) 0.1 0.1 Baso # (Auto) 0.0 0.0 Immature Gran # (Auto) 0.0 0.0 Sodium 138.0 137.2 Potassium 3.51 3.08 L Chloride 106.0 103.5 Carbon Dioxide 27.6 30.9 H Anion Gap 7.91 5.88 BUN 9.9 8.4 Creatinine 0.75 0.72 Estimated GFR (MDRD) 75.00 79.00 BUN/Creatinine Ratio 13.20 11.66 Glucose 126.3 H 95.9 Calcium 8.32 L 8.47 Total Bilirubin 0.60 0.80 AST 31.2 29.5 ALT 21.2 20.5 Alkaline Phosphatase 52.9 L 55.1 Troponin I < 0.012 NT-Pro-B Natriuret Pep 3070 H Total Protein 6.03 L 6.20 L Albumin 3.44 L 3.48 L Globulin 2.59 2.72 Albumin/Globulin Ratio 1.32 1.27 SARS CoV-2 RNA Rapid SHANELL Negative Imaging Imaging: EXAM: CHEST, SINGLE VIEW HISTORY: Shortness of breath COMPARISON: 05/22/2021 IMPRESSION: Cardiomediastinal contours appear stable. There is central pulmonary vascular congestion. Interstitial infiltrate within both lungs with patchy areas of bibasilar consolidation. These findings may represent a combination of atelectasis, pulmonary edema and/or pneumonia. Blunting of the right lateral costophrenic angle. Small right pleural effusion is not excluded. There is no pneumothorax. Review Statement Review Statement: I have independently reviewed and interpreted the labs/EKGs/imaging that were ordered by the ER provider. I have reviewed all outside records that are available currently in our EMR including imaging/notes/labs from previous visits. Plan Plan: 1. Acute heart failure exacerbation, new onset, unknown type - Could be induced by significant stress this past week. Lasix 20 mg bid IVP, I&O, daily weights, echo today. Wean O2. Low sodium. Check procal. 2. Hypokalemia in setting of diuretic - Replaced, repeat bmp in AM. 3. A fib, rate controlled - Cont treatment lovenox. May need to reschedule colonoscopy later this week however. 4. Hypertension - Cont home meds 5. Hx of breast cancer - Son brought in tamoxifen, continue . 6. Overactive bladder - Sees urology. On trospium, may continue med from home DVT Prophylaxis: Lovenox Time Spent: Greater than 80 minutes spent with patient, 50% of the time spent with this patient was devoted to counseling and coordination of care. [facility] minutes spent discussing advance care planning. FULL CODE Admit to: Obs Discussed Plan of Care with Dr. Charli Atkinson. Medications Medication Orders: Medications Ordered Category Date Time Status 0.9 % Sodium Chloride [Saline Flush] Meds 09/13/23 13:00 Active 1 syr IVF Q8HR Colestipol HCl [Colestid] Meds 09/13/23 21:00 Active 1 gm PO 0730,2100 Enoxaparin Sodium [Lovenox] Meds 09/13/23 21:00 Active 80 mg SUBCUT 2100 Ezetimibe [Zetia] Meds 09/13/23 09:00 Active 10 mg PO DAILY Furosemide [Lasix] Meds 09/13/23 06:00 Active 20 mg IVP BIDAC2 Gabapentin [Neurontin] Meds 09/13/23 09:00 Active 300 mg PO DAILY Loratadine [Claritin] Meds 09/13/23 09:00 Active 10 mg PO DAILY Lorazepam [Ativan] Meds 09/12/23 21:19 Active 0.5 mg PO DAILY PRN Potassium Chloride [K-Dur] Meds 09/13/23 15:00 Once 40 meq PO ONCE ONE Sotalol HCl [Betapace] Meds 09/12/23 22:00 Active 80 mg PO BID Tramadol HCl [Ultram] Meds 09/12/23 21:19 Active 50 mg PO BID PRN Vitamin B-6 [Pyridoxine HCl] Meds 09/13/23 09:00 Active 100 mg PO QID tamoxifen Meds 09/13/23 09:00 Active 20 mg PO DAILY trospium Meds 09/13/23 09:45 Active 60 mg PO QDAC2
[2023-09-13] MEDS ORDERED: CELEBREX PO SCH (17:00)
[2023-09-13] MEDS: ULTRAM PO PRN (20:33)
[2023-09-13] MEDS: COLESTID PO SCH (20:34)
[2023-09-13] MEDS: LOMOTIL PO PRN (20:34)
[2023-09-13] MEDS ORDERED: LOVENOX SUBCUT SCH (21:00)
[2023-09-14] MEDS: ULTRAM PO PRN (04:10)
[2023-09-14 05:13] LABS: BASOPHILS % (AUTO) 0.4 % (0.0-3.0); EOSINOPHILS # (AUTO) 0.2 K/ul (0.0-0.7); HEMATOCRIT 33.9 % (37.0-47.0); HEMOGLOBIN 10.9 g/dl (12.0-16.0); IMMATURE GRANULOCYTE % (AUTO) 0.2 % (0.0-5.0); LYMPHOCYTES # (AUTO) 1.7 K/uL (0.60-3.4); LYMPHOCYTES % (AUTO) 20.1 (10.0-50.0); MEAN CORPUSCULAR HEMOGLOBIN 30.2 pg (27.0-31.0); MEAN CORPUSCULAR HGB CONC 32.2 (31.8-35.4); MEAN CORPUSCULAR VOLUME 93.9 fl (81.0-99.0); MONOCYTES % (AUTO) 12.4 (0-10); NEUTROPHILS # (AUTO) 5.4 K/ul (2.0-6.9); NEUTROPHILS % (AUTO) 64.9 % (42.2-75.2); PLATELET COUNT 174 10^3/uL (140-440); RDW COEFFICIENT OF VARIATION 14.3 % (11.6-14.8); RED BLOOD COUNT 3.61 10^6/ul (4.20-5.40)
[2023-09-14 05:21] LABS: ALANINE AMINOTRANSFERASE 18.3 U/L (0-35); ALBUMIN 3.34 g/dL (3.5-5.0); ALKALINE PHOSPHATASE 54.4 U/L (53-141); ASPARTATE AMINO TRANSFERASE 23.7 U/L (14-36); BILIRUBIN,TOTAL 0.78 mg/dL (0.2-1.3); BLOOD UREA NITROGEN 9.5 mg/dL (7-17); CALCIUM 8.24 mg/dL (8.4-10.2); CARBON DIOXIDE 32.1 mmol/L (22-30.0); CHLORIDE 101.6 mmol/L (98-107); CREATININE 0.78 mg/dL (0.60-1.30); GLUCOSE 96.8 mg/dL (74-106); POTASSIUM 3.4 mmol/L (3.5-5.1); SODIUM 136.6 mmol/L (134.5-145); TOTAL PROTEIN 5.94 g/dL (6.3-8.2)
[2023-09-14] MEDS: LASIX IVP SCH (06:12)
[2023-09-14] MEDS: COLESTID PO SCH ×2 (07:40→21:11)
[2023-09-14] MEDS ORDERED: NORCO 5-325 PO ONE (08:10)
[2023-09-14] MEDS ORDERED: K-DUR PO ONE (08:11)
[2023-09-14] MEDS: CLARITIN PO SCH (08:18)
[2023-09-14] MEDS: PYRIDOXINE HCL PO SCH ×4 (08:19→20:53)
[2023-09-14] MEDS: ZETIA PO SCH (08:19)
[2023-09-14] MEDS: NEURONTIN PO SCH (08:19)
[2023-09-14] MEDS: BETAPACE PO SCH ×2 (08:19→20:53)
[2023-09-14] MEDS ORDERED: SOLU-MEDROL 125 MG IVP ONE (09:06)
--- NOTE | 2023-09-14 10:15 | DI ---
EXAM: RIGHT KNEE RADIOGRAPH. HISTORY: Right knee pain. TECHNIQUE: Two views. Frontal and lateral. COMPARISON: None. FINDINGS: Scattered degenerative changes. Moderate sized suprapatellar joint effusion. 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 There is no fracture or dislocation. Articular surfaces are intact. There is no lytic or blastic lesion. There is no radiopaque foreign body. IMPRESSION: As above.
--- NOTE | 2023-09-14 13:06 | PCM.PROG ---
Date/Time Seen Date Seen by Provider: 09/14/23 Time Seen by Provider: 08:30 Provider Provider: JEA[facility] AREVALO [facility]-C, [facility] Chief Complaint Chief Complaint: CHF Subjective Subjective: Patient is feeling much better regarding her breathing and swelling. She feels back to baseline. However last night her right knee started hurting. It is 10/10 pain this morning and she is unable to move it or bear weight. No injury or fall. It is mildly swollen. No redness or warmth. No hx of gout. She has arthritis in her knees. Objective Appearance: Positive Well-appearing, Well-nourished, No Apparent Distress and Alert and Oriented x3 Chest/Lungs: Positive Clear to Auscultation Bilaterally; Negative Rales, Rhonci or Wheezes Heart: Positive Irregular Rhythm GI/: Positive Soft, Nontender, Bowel Sounds Normal and No Distention Musculoskeletal: Positive Other (+right knee - pain with ROM, mild swelling of superior aspect of knee, pulses and sensation intact. No redness or warmth noted. ) Neurological: Positive Cranial Nerves Intact, Alert and Oriented Vital Signs Vital Signs: Vital Signs: Last 24 Hours 09/13/23 13:59 09/13/23 14:00 09/13/23 14:00 Temperature 97.7 F Temperature Source Oral Pulse Rate 78 Respiratory Rate 16 Blood Pressure 141/80 H Blood Pressure Mean 100 Blood Pressure Location Left Arm Blood Pressure Position Sitting O2 Sat by Pulse Oximetry 97 96 Oxygen Delivery Method Room Air Room Air Room Air Weight Telemetry Type Telemetry Monitoring Irregular Telemetry Rate (Approximate) Telemetry Heart Rate EKG QRS Interval Telemetry Strip Reading 09/13/23 15:00 09/13/23 16:00 09/13/23 16:54 Temperature Temperature Source Pulse Rate Respiratory Rate Blood Pressure Blood Pressure Mean Blood Pressure Location Blood Pressure Position O2 Sat by Pulse Oximetry Oxygen Delivery Method Room Air Room Air Room Air Weight Telemetry Type Telemetry Monitoring Irregular Telemetry Rate (Approximate) Telemetry Heart Rate EKG QRS Interval Telemetry Strip Reading 09/13/23 18:00 09/13/23 19:00 09/13/23 19:00 Temperature Temperature Source Pulse Rate Respiratory Rate Blood Pressure Blood Pressure Mean Blood Pressure Location Blood Pressure Position O2 Sat by Pulse Oximetry Oxygen Delivery Method Room Air Room Air Weight Telemetry Type Remote Telemetry Telemetry Monitoring Continues Irregular Telemetry Rate (Approximate) Telemetry Heart Rate 75 EKG QRS Interval 0.06 Telemetry Strip Reading A-FIB 09/13/23 20:00 09/13/23 20:00 09/13/23 20:00 Temperature Temperature Source Pulse Rate Respiratory Rate Blood Pressure Blood Pressure Mean Blood Pressure Location Blood Pressure Position O2 Sat by Pulse Oximetry Oxygen Delivery Method Room Air Room Air Room Air Weight Telemetry Type Telemetry Monitoring Irregular Telemetry Rate (Approximate) Telemetry Heart Rate EKG QRS Interval Telemetry Strip Reading 09/13/23 20:00 09/13/23 21:00 09/13/23 21:00 Temperature Temperature Source Pulse Rate Respiratory Rate Blood Pressure Blood Pressure Mean Blood Pressure Location Blood Pressure Position O2 Sat by Pulse Oximetry 93 L Oxygen Delivery Method Room Air Room Air Room Air Weight Telemetry Type Telemetry Monitoring Irregular Telemetry Rate (Approximate) Telemetry Heart Rate EKG QRS Interval Telemetry Strip Reading 09/13/23 21:27 09/13/23 22:00 09/13/23 22:49 Temperature 98.5 F Temperature Source Oral Pulse Rate 81 Respiratory Rate Blood Pressure 137/75 Blood Pressure Mean 95 Blood Pressure Location Right Arm Blood Pressure Position Supine O2 Sat by Pulse Oximetry 90 L Oxygen Delivery Method Room Air Room Air Room Air Weight Telemetry Type Telemetry Monitoring Irregular Telemetry Rate (Approximate) Telemetry Heart Rate EKG QRS Interval Telemetry Strip Reading 09/13/23 23:54 09/14/23 00:41 09/14/23 01:00 Temperature Temperature Source Pulse Rate Respiratory Rate Blood Pressure Blood Pressure Mean Blood Pressure Location Blood Pressure Position O2 Sat by Pulse Oximetry Oxygen Delivery Method Room Air Room Air Weight Telemetry Type Remote Telemetry Telemetry Monitoring Continues Irregular Telemetry Rate (Approximate) 70-80 BPM Telemetry Heart Rate EKG QRS Interval 0.07 Telemetry Strip Reading A-FIB 09/14/23 01:58 09/14/23 02:50 09/14/23 04:00 Temperature Temperature Source Pulse Rate Respiratory Rate Blood Pressure Blood Pressure Mean Blood Pressure Location Blood Pressure Position O2 Sat by Pulse Oximetry Oxygen Delivery Method Room Air Room Air Room Air Weight Telemetry Type Telemetry Monitoring Irregular Telemetry Rate (Approximate) Telemetry Heart Rate EKG QRS Interval Telemetry Strip Reading 09/14/23 04:53 09/14/23 05:00 09/14/23 05:00 Temperature 99.0 F Temperature Source Oral Pulse Rate 84 Respiratory Rate 18 Blood Pressure 154/81 H Blood Pressure Mean 105 Blood Pressure Location Blood Pressure Position O2 Sat by Pulse Oximetry 94 L Oxygen Delivery Method Room Air Room Air Room Air Weight Telemetry Type Telemetry Monitoring Irregular Telemetry Rate (Approximate) Telemetry Heart Rate EKG QRS Interval Telemetry Strip Reading 09/14/23 05:25 09/14/23 05:34 09/14/23 06:00 Temperature Temperature Source Pulse Rate Respiratory Rate Blood Pressure Blood Pressure Mean Blood Pressure Location Blood Pressure Position O2 Sat by Pulse Oximetry 96 Oxygen Delivery Method Room Air Room Air Weight 176 lb Telemetry Type Telemetry Monitoring Irregular Telemetry Rate (Approximate) Telemetry Heart Rate EKG QRS Interval Telemetry Strip Reading 09/14/23 06:00 09/14/23 07:00 09/14/23 07:00 Temperature Temperature Source Pulse Rate Respiratory Rate Blood Pressure Blood Pressure Mean Blood Pressure Location Blood Pressure Position O2 Sat by Pulse Oximetry Oxygen Delivery Method Room Air Room Air Weight Telemetry Type Remote Telemetry Telemetry Monitoring Continues Irregular Telemetry Rate (Approximate) Telemetry Heart Rate 85 EKG QRS Interval 0.09 Telemetry Strip Reading Atrial fib/ Flutter 09/14/23 07:45 09/14/23 08:00 09/14/23 09:00 Temperature Temperature Source Pulse Rate Respiratory Rate Blood Pressure Blood Pressure Mean Blood Pressure Location Blood Pressure Position O2 Sat by Pulse Oximetry Oxygen Delivery Method Room Air Room Air Room Air Weight Telemetry Type Telemetry Monitoring Irregular Telemetry Rate (Approximate) Telemetry Heart Rate EKG QRS Interval Telemetry Strip Reading 09/14/23 09:56 09/14/23 10:00 09/14/23 10:00 Temperature 98.3 F Temperature Source Oral Pulse Rate 94 Respiratory Rate 17 Blood Pressure 141/89 H Blood Pressure Mean 106 Blood Pressure Location Left Arm Blood Pressure Position Supine O2 Sat by Pulse Oximetry 92 L 91 L Oxygen Delivery Method Room Air Room Air Room Air Weight Telemetry Type Telemetry Monitoring Irregular Telemetry Rate (Approximate) Telemetry Heart Rate EKG QRS Interval Telemetry Strip Reading 09/14/23 11:00 09/14/23 12:00 09/14/23 12:49 Temperature 98.1 F Temperature Source Oral Pulse Rate 88 Respiratory Rate Blood Pressure 146/90 H Blood Pressure Mean 108 Blood Pressure Location Left Arm Blood Pressure Position Supine O2 Sat by Pulse Oximetry 91 L Oxygen Delivery Method Room Air Room Air Room Air Weight Telemetry Type Telemetry Monitoring Irregular Telemetry Rate (Approximate) Telemetry Heart Rate EKG QRS Interval Telemetry Strip Reading Lab Results Lab Results: Lab Results: Last 24 Hours 09/14/23 04:49 WBC 8.30 RBC 3.61 L Hgb 10.9 L Hct 33.9 L MCV 93.9 MCH 30.2 MCHC 32.2 RDW Coeff of Jose 14.3 Plt Count 174 Immature Gran % (Auto) 0.2 Neut % (Auto) 64.9 Lymph % (Auto) 20.1 Burt % (Auto) 12.4 H Eos % (Auto) 2.0 Baso % (Auto) 0.4 Neut # (Auto) 5.4 Lymph # (Auto) 1.7 Burt # (Auto) 1.0 Eos # (Auto) 0.2 Baso # (Auto) 0.0 Immature Gran # (Auto) 0.0 Sodium 136.6 Potassium 3.40 L Chloride 101.6 Carbon Dioxide 32.1 H Anion Gap 6.30 BUN 9.5 Creatinine 0.78 Estimated GFR (MDRD) 72.00 BUN/Creatinine Ratio 12.17 Glucose 96.8 Calcium 8.24 L Total Bilirubin 0.78 AST 23.7 ALT 18.3 Alkaline Phosphatase 54.4 Total Protein 5.94 L Albumin 3.34 L Globulin 2.60 Albumin/Globulin Ratio 1.28 Additional Comments Additional Comments: I have independently reviewed and interpreted the labs/EKGs/imaging ordered during this hospital stay. I have reviewed outside records that are available in our EMR that pertain to medical stay including imaging/notes/labs from previous visits. Active Medications Active Medications: Medications Generic Name Dose Route Start Last Admin Trade Name Freq PRN Reason Stop Dose Admin Celecoxib 200 mg 09/13/23 17:00 09/13/23 17:11 Celecoxib 100 Mg Capsule PO 200 mg MoWeFr ROCK Administration Colestipol HCl 1 gm 09/13/23 21:00 09/14/23 07:40 Colestipol Hcl 1 Gm Tablet PO 1 gm 0730,2100 ROCK Administration Diphenoxylate HCl/Atropine 1 tab 09/13/23 20:00 09/13/23 20:34 Diphenoxylate/Atropine 2.5/0.025 Mg Tablet PO 1 tab Q2H PRN Administration Diarrhea Ezetimibe 10 mg 09/13/23 09:00 09/14/23 08:19 Ezetimibe 10 Mg Tablet PO 10 mg DAILY ROCK Administration Enoxaparin Sodium 80 mg 09/13/23 21:00 09/13/23 20:32 Enoxaparin Sodium 40 Mg/0.4 Ml Syr SUBCUT 80 mg 2100 ROCK Administration Gabapentin 300 mg 09/13/23 09:00 09/14/23 08:19 Gabapentin 300 Mg Capsule PO 300 mg DAILY ROCK Administration Loratadine 10 mg 09/13/23 09:00 09/14/23 08:18 Loratadine 10 Mg Tablet PO 10 mg DAILY ROCK Administration Lorazepam 0.5 mg 09/12/23 21:19 09/13/23 20:34 Lorazepam 0.5 Mg Tablet PO 0.5 mg DAILY PRN Administration Insomnia Non-Formulary Medication 60 mg 09/13/23 09:45 09/14/23 05:13 Trospium PO 60 mg QDAC2 ROCK Administration Non-Formulary Medication 20 mg 09/13/23 09:00 09/14/23 08:20 Tamoxifen PO 20 mg DAILY ROCK Administration Pyridoxine HCl 100 mg 09/13/23 09:00 09/14/23 12:42 Vitamin B-6 50 Mg Tablet PO 100 mg QID ROCK Administration Sodium Chloride 1 syr 09/13/23 13:00 09/14/23 12:43 0.9% Sodium Chloride 10 Ml Disp.Syrin IVF 1 syr Q8HR ROCK Administration Sotalol HCl 80 mg 09/12/23 22:00 09/14/23 08:19 Sotalol Hcl 80 Mg Tablet PO 80 mg BID ROCK Administration Tramadol HCl 50 mg 09/12/23 21:19 09/14/23 04:10 Tramadol Hcl 50 Mg Tablet PO 50 mg BID PRN Administration Pain Plan Plan: 1. Acute heart failure with preserved EF exacerbation, new onset - Could be induced by significant stress this past week. Stop lasix. I&O, daily weights. Echo with noraml EF. Low sodium. Will dc home on prn lasix. 2. Hypokalemia in setting of diuretic - Replaced, repeat bmp in AM. 3. A fib, rate controlled - Pt has cancelled colonoscopy this week, stop lovenox, restart xarelto. 4. Hypertension - Cont home meds 5. Hx of breast cancer - Son brought in tamoxifen, continue . 6. Overactive bladder - Sees urology. On trospium, may continue med from home 7. Right knee arthralgia - Likely due to underlying arthritis. No fever. Solumedrol ordered. Ice packs. Encourage ambulation. [place] prn for pain. Dispo: Plan was to discharge patient today however she is unable to ambulate safely and was unable to get off of the toilet without help due to her acute right knee pain. Will give steroids and plan for discharge tomorrow. DVT: Jj Review Statement Review Statement: I have personally discussed and reviewed the patient's visit/currently labs/imaging/decision making with Dr. Atkinson, my supervising attending. Greater that 50 minutes spent with patient, 50% of the time spent with this patient was devoted to counseling and coordination of care.
[2023-09-14] MEDS: NORCO 5-325 PO PRN (16:05)
[2023-09-14] MEDS ORDERED: XARELTO PO SCH (17:00)
[2023-09-14 20:45] VITALS: PULSE 85
[2023-09-14] MEDS: SOLU-MEDROL 40 MG IVP SCH (20:53)
[2023-09-14] MEDS: ATIVAN PO PRN (20:53)
[2023-09-15 04:59] VITALS: BP 135/73; RESP 16; TEMP 98.5
[2023-09-15] MEDS: COLESTID PO SCH (08:32)
[2023-09-15] MEDS: PYRIDOXINE HCL PO SCH (08:32)
[2023-09-15] MEDS: CLARITIN PO SCH (08:33)
[2023-09-15] MEDS: NEURONTIN PO SCH (08:33)
[2023-09-15] MEDS: BETAPACE PO SCH (08:33)
[2023-09-15] MEDS: ZETIA PO SCH (08:33)
[2023-09-15] MEDS: SOLU-MEDROL 40 MG IVP SCH (08:33)
[2023-09-15] MEDS: LOMOTIL PO PRN (08:42)
[2023-09-15] MEDS: NORCO 5-325 PO PRN (08:42)
[2023-09-15 08:46] LABS: BLOOD UREA NITROGEN 14.4 mg/dL (7-17); CALCIUM 8.18 mg/dL (8.4-10.2); CARBON DIOXIDE 28.3 mmol/L (22-30.0); CHLORIDE 94.7 mmol/L (98-107); CREATININE 0.67 mg/dL (0.60-1.30); GLUCOSE 152.5 mg/dL (74-106); POTASSIUM 3.65 mmol/L (3.5-5.1); SODIUM 130.2 mmol/L (134.5-145)
--- NOTE | 2023-09-15 10:21 | DCSUM ---
Admission Date Admission Date: 09/12/23 Discharge Date Discharge Date: 09/15/23 Admission Diagnosis Admission Diagnosis: 1. Acute heart failure exacerbation, unknown type Discharge Diagnosis Discharge Diagnosis: 1. Acute heart failure with preserved EF exacerbation, new onset - resolved 2. Hypokalemia in setting of diuretic - resolved 3. A fib, rate controlled 4. Hypertension 5. Hx of breast cancer 6. Overactive bladder 7. Right knee arthralgia - Improved. Hospital Provider Hospital Provider: JEANA AREVALO PA-C, [facility] Primary Care Physician Primary Care Physician: MELISSA YOUSIF MD Summary of History and Physical Summary of History and Physical: Patient is a 78 year old female from home with pmhx of breast cancer, a fib, overactive bladder, hypertension, hyperlipidemia, anemia, who presented to the ER with worsening SOB. Patient states it started on 09/11. She also developed lower extremity edema which is new for her. No chest pain. Her of many years this week. 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 She had been under an immense amount of stress with this. She denies hx of CHF. She has hx of a fib, which she normally takes xarelto, but is currently on lovenox awaiting a colonoscopy this week. She was found to have elevated BNP in ER. CXR showed pulmonary congestion. She was given lasix 20 IV. She was placed on 2L O2 due to being tachypneic. She was admitted to [facility]. On my evaluation this morning is feeling better, has had 1500 out. States her swelling is improved. Still having some SOB with exertion. Son at bedside. Hospital Course Subjective: Patient was treated with IV lasix and diuresed well. Her SOB and edema resolved. Echo showed preserved EF. Thought likely due to recent immense stress with passing. Patient on 09/14 woke up with horrible right knee pain. She was unable to ambulate without assistance. X ray showed arthritis and joint effusion. No trauma. [place] patient was unsafe for discharge due to her living alone and unable to ambulate or get up off of the toilet. She was started on IV solumedrol and by 09/15 her pain was improved. She was able to ambulate with her walker better and felt comfortable with discharge. Will dc on prednisone and prn lasix. Discussed to take lasix with worsening swelling, sob, or 3 lb weight gain. Call Dr. Yousif if taking it regularly as her labs will need to be monitore d and possible K+ supplementation. Pt agrees to plan of care. Dr. Kenia Yousif aware of discharge plan also. Appearance: Pleasant, No Apparent Distress, Alert, Well-appearing and Well- nourished HEENT: MMM CVS: No Murmur Abdomen: Soft, Non-Tender and No Distention Respiratory: No Dyspnea Extremities: No Edema Vital Signs: Most Recent Vital Signs Temperature 98.5 F 09/15/23 04:58 Temperature Source Oral 09/15/23 04:58 Temperature Source Oral 09/12/23 16:36 Pulse Rate 85 09/15/23 04:58 Respiratory Rate 16 09/15/23 04:58 Blood Pressure 135/73 09/15/23 04:58 Blood Pressure Mean 93 09/15/23 04:58 Blood Pressure Right Arm 192/100 09/12/23 20:18 Blood Pressure Location Left Arm 09/15/23 04:58 Blood Pressure Position Supine 09/14/23 20:44 O2 Sat by Pulse Oximetry 92 L 09/15/23 04:58 Oxygen Delivery Method Room Air 09/15/23 08:00 Oxygen Flow Rate 1 09/13/23 09:47 Height 5 ft 7 in 09/12/23 20:18 Weight 175 lb 3 oz 09/15/23 05:47 Telemetry Type Remote Telemetry 09/15/23 07:00 Telemetry Monitoring Continues 09/15/23 07:00 Irregular Telemetry Rate (Approximate) 80-90 BPM 09/15/23 01:00 Telemetry Heart Rate 80 09/15/23 07:00 Telemetry SPO2 94 09/14/23 19:00 EKG HI Interval 0.14 09/15/23 07:00 EKG QRS Interval 0.08 09/15/23 07:00 Telemetry Strip Reading SR 09/15/23 07:00 Imaging: EXAM: CHEST, SINGLE VIEW HISTORY: Shortness of breath COMPARISON: 05/22/2021 IMPRESSION: Cardiomediastinal contours appear stable. There is central pulmonary vascular congestion. Interstitial infiltrate within both lungs with patchy areas of bibasilar consolidation. These findings may represent a combination of atelectasis, pulmonary edema and/or pneumonia. Blunting of the right lateral costophrenic angle. Small right pleural effusion is not excluded. There is no pneumothorax. Lab Results Last 24 Hours: 09/15/23 08:31 Sodium 130.2 L Potassium 3.65 Chloride 94.7 L Carbon Dioxide 28.3 Anion Gap 10.85 BUN 14.4 Creatinine 0.67 Estimated GFR (MDRD) 86.00 BUN/Creatinine Ratio 21.49 Glucose 152.5 H Calcium 8.18 L Discharge Instructions Discharge Planning: Discharge Planning > [address] Charli Yousif. Discharge Medications: Medications at Discharge (Home Meds & RX) cetirizine 10 mg tablet (Zyrtec) 10 mg PO DAILY 03/08/18 utavenbc-kdz-daqhc acid 0.4 mg-lycopene 300 mcg-lutein 250 mcg tablet (Centrum Silver) 1 tab PO DAILY 03/08/18 cyanocobalamin (vitamin B-12) 1,000 mcg capsule 1,000 mcg PO QDAY 12/17/22 tamoxifen 20 mg tablet 20 mg PO QDAY #90 tabs 12/17/22 trospium 60 mg capsule,extended release 24 hr 60 mg PO QDAC #90 caps 12/17/22 acetaminophen 500 mg tablet (Tylenol Extra Strength) 500 mg PO BID PRN MILD PAIN 03/25/23 pyridoxine (vitamin B6) 100 mg tablet 100 mg PO QID 03/25/23 colestipol 1 gram tablet See Rx Instructions .Route .COMPLEX #180 tabs 04/13/23 fluticasone propionate 50 mcg/actuation nasal spray,suspension (Flonase Allergy Relief) 1 spray intranasal QDAY #16 grams 05/10/23 sotalol 80 mg tablet See Rx Instructions .Route .COMPLEX #180 tabs 06/22/23 ezetimibe 10 mg tablet (Zetia) 10 mg PO DAILY #90 tabs 07/01/23 rivaroxaban 20 mg tablet (Xarelto) 20 mg PO 1700 #90 tabs 08/30/23 diphenoxylate-atropine 2.5 mg-0.025 mg tablet (Lomotil) 1 tab PO TID PRN diarrhea #20 tabs 09/06/23 gabapentin 300 mg capsule (Neurontin) 300 mg PO DAILY #90 caps 09/06/23 tramadol 50 mg tablet 50 mg PO BID PRN Pain #60 tabs 09/06/23 celecoxib 200 mg capsule (Celebrex) 200 mg PO 3 TIMES PER WEEK 09/12/23 lorazepam 0.5 mg tablet (Ativan) 0.5 mg PO DAILY PRN insomnia 09/12/23 furosemide 20 mg tablet (Lasix) 20 mg PO DAILY PRN EDEMA, WEIGHT GAIN #10 tabs 09/15/23 prednisone 20 mg tablet 20 mg PO BID 5 days #10 tabs 09/15/23 Discharge Plan Discharge Discharge Orders: Discharge Patient (ONCE); Ordered 09/15/23 Ordered By: JEANA AREVALO Activity Restrictions/Additional Instructions: YOU ARE BEING DISCHARGED HOME TODAY. FOLLOW UP WITH DR. YOUSIF. DX: ACUTE HEART FAILURE, RIGHT KNEE PAIN ACTIVITY: TOLERATED, FALL PRECAUTIONS, USE WALKER DIET: LOW SODIUM NEW MEDICATIONS: LASIX 20MG NEEDED PREDNISONE 20MG TWICE A DAY *SENIOR CARE PROVIDER NEW PRESCRIPTIONS AT [employer] IN [facility]* TAKE LASIX NEEDED (3 LB WEIGHT GAIN, SWELLING, SOB) CALL DR. YOUSIF IF YOU'RE NEEDING TO TAKE IT REGULARLY Instructions: Heart Failure (GEN), Heart Healthy Diet (GEN) Patient Disposition: HOME SELF-CARE Prescriptions: New furosemide [Lasix] 20 mg tablet 20 mg PO DAILY PRN (Reason: EDEMA, WEIGHT GAIN) Qty: 10 0RF prednisone 20 mg tablet 20 mg PO BID 5 Days Qty: 10 0RF Continued colestipol 1 gram tablet See Rx Instructions .ROUTE .COMPLEX Qty: 180 1RF Dose Instruction: TAKE ONE (1) TABLET BY MOUTH TWICE A DAY Rx Instructions: TAKE ONE (1) TABLET BY MOUTH TWICE A DAY fluticasone propionate [Flonase Allergy Relief] 50 mcg/actuation spray,suspension 1 spray intranasal QDAY Qty: 16 2RF Rx Instructions: administer into each nostril sotalol 80 mg tablet See Rx Instructions .ROUTE .COMPLEX Qty: 180 1RF Dose Instruction: TAKE ONE (1) TABLET BY MOUTH TWICE DAILY Rx Instructions: TAKE ONE (1) TABLET BY MOUTH TWICE DAILY Xarelto 20 mg tablet 20 mg PO 1700 Qty: 90 1RF Hold Instructions: TEMPORARY FOR COLONOSCOPY/TAKING LOVENOX cetirizine [Zyrtec] 10 MG tablet 10 mg PO DAILY Centrum Silver 1 EACH tablet 1 tab PO DAILY celecoxib [Celebrex] 200 mg capsule 200 mg PO 3 TIMES PER WEEK Patient Comments: [id number] lorazepam [Ativan] 0.5 mg tablet 0.5 mg PO DAILY PRN (Reason: insomnia) ezetimibe [Zetia] 10 mg tablet 10 mg PO DAILY Qty: 90 0RF cyanocobalamin (vitamin B-12) 1,000 mcg capsule 1,000 mcg PO QDAY tamoxifen 20 mg tablet 20 mg PO QDAY Qty: 90 1RF trospium 60 mg capsule,extended release 24hr 60 mg PO QDAC Qty: 90 1RF pyridoxine (vitamin B6) 100 mg tablet 100 mg PO QID acetaminophen [Tylenol Extra Strength] 500 mg tablet 500 mg PO BID PRN (Reason: MILD PAIN) gabapentin [Neurontin] 300 mg capsule 300 mg PO DAILY Qty: 90 1RF tramadol 50 mg tablet 50 mg PO BID PRN (Reason: Pain) Qty: 60 1RF diphenoxylate-atropine [Lomotil] 2.5-0.025 mg tablet 1 tab PO TID PRN (Reason: diarrhea) Qty: 20 1RF Discontinued enoxaparin [Lovenox] 80 mg/0.8 mL syringe 80 mg subcut QDAY Qty: 5 0RF Rx Instructions: inject 80mg sc daily while off xarelto Did you review [place] [employer] TECHNICIAN for ALL controlled substances?: Not Applicable Discussed opioids are addictive and Narcan is available by prescription or from pharmacy.: No Condition: Stable Referrals: MELISSA YOUSIF MD [Primary Care Provider] - 09/22/23 1:00 pm
--- NOTE | 2023-09-15 15:07 | ECHO2D ---
Date of Exam: 09/13/2023 Ordering Physician: DR. MELISSA YOUSIF Room #: 120 Reason for Echo: CHF, CARDIOMEGALY M-Mode Normal Adult Results LV Dimensions Normal Adult Results AoV Opening excursions >1.6 >1.6 LVEDD-base- 3.5-5.8 5.7 Ao root dimensions 2.0-3.7 3.2 LVESD-base- 3.1-4.6 L. Atrium dimensions 1.9-3.8 6.2 Post. Wall thickness 0.8-1.1 1.2 IV septum (thickness) 0.7-1.2 1.3 Post. Wall excursion 0.72-1.3 NORMAL Septal motion NORMAL Systolic motion R. Ventricular cavity 1.5-2.0 NORMAL LVEF 60% 55% Paradoxical septal wall motion NORMAL 2-D : ENLARGED LEFT ATRIAL AND RIGHT ATRIAL CAVITIES, BORDERLINE LEFT VENTRICLE CAVITY SIZE, NORMAL LEFT VENTRICLE CONTRACTILITY--NO EFFUSION, NO THROMBUS, VALVES ARE NORMAL COLOR FLOW: MILD TO MODERATE MITRAL REGURGITATION M-MODE: MV: NORMAL AV: NORMAL TV: NORMAL PV: CHAMBER SIZE: ENLARGED RIGHT ATRIAL AND LEFT ATRIAL CAVITIES--BORDERLINE LEFT VENTRICLE CAVITY WALL MOTION: NORMAL PERICARDIUM: NORMAL INTERPRETATION: 1. LEFT VENTRICLE HYPERTROPHY 2. BIATRIAL ENLARGEMENT 3. LEFT VENTRICLE CAVITY BORDERLINE ENLARGED (5.7 CM) (2020 --LV CAVITY 4.3) 4. EJECTION FRACTION 55% 5. MILD TO MODERATE MITRAL REGURGITATION MTDD
== END 2023-09-15 11:40 | disposition home or self-care (01) | DRG 291 ==
LOC: ED 16:13 → INTOOBSV 19:53 → MEDSURG B 19:53
PROVIDERS: ADMIT Hospitalist; ATTEND Physician Assistant
DX: E87.1 Hypo-osmolality and hyponatremia; M25.561 Pain in right knee; Z85.3 Personal history of malignant neoplasm of breast; I48.91 Unspecified atrial fibrillation; I50.21 Acute systolic (congestive) heart failure; I11.0 Hypertensive heart disease with heart failure; N32.81 Overactive bladder; E87.6 Hypokalemia

== ENCOUNTER 2024-07-08 08:31 | Inpatient (IN) ==
--- NOTE | 2024-07-08 08:48 | ED.PDOC ---
General ED Provider: Dr. OFELIA CORNELIUS Chief Complaint: Fever Stated Complaint: Comes to the ER with fever and cough off and on for three weeks then today started filling short or breath. PCP gave her medications for cough, steroids and an antibiotic Time Seen by Provider: 07/08/24 08:38 Information Source: Patient and EMT Primary Care Provider: MELISSA YOUSIF MD Nursing and Triage Documentation Reviewed and Agree: Yes What is Opioid Naive?: *Opioid Naive implies the patient is not already taking opioids or not chronically receiving opioids on a daily basis. *PRN dosing is not "usually" associated with tolerance. *Patients are at higher risk of over-sedation and aspiration. What is Opioid Tolerant?: *Opioid Tolerance implies less than the expected response to an opioid. *Acquired tolerance is defined by the patient taking 60mg of oral morphine daily (or equianalgesic dose of another opioid) for 1 week or more. *Often associated with chronic pain. *May take more than usual dose to achieve desired pain control. Review of Systems Review Of Systems Constitutional: Reports Fever Respiratory: Reports Cough and Shortness of Breath All Other Systems: Reviewed and Negative [facility] Medical History Congestive heart failure (CHF) I50.9 - Heart failure, unspecified (ICD-10) Breast cancer C50.919 - Malignant neoplasm of unspecified site of unspecified female breast (ICD-10) Collagenous colitis diarrhea flair up in 2015 and 2018 colonoscopy reports pending from 10/28/23 budesonide pills low dose helped at the time of flair up K52.831 - Collagenous colitis (ICD-10) Hospital discharge follow-up [facility] 09/12/23-09/15/23 with acute heart failure, hypokalemia, and a-fib Z09 - Encounter for follow-up examination after completed treatment for conditions other than malignant neoplasm (ICD-10) Tick bite W57.XXXA - Bitten or stung by nonvenomous insect and other nonvenomous arthropods, initial encounter (ICD-10) Hematuria R31.9 - Hematuria, unspecified (ICD-10) Family History Other No known health problems Social History Smoking and tobacco status: Never smoker Alcohol intake: never Substance use type: does not use Special jennifer needs: No Agree to transfusion: Yes Adopted: No Caregiver/support person: No Foster care: No Household members: spouse Housing: house Marital status: W / Lives independently: Yes Number of children: 1 service: No group home: No Current occupational status: retired History of recent travel: No Do you think of yourself as: straight/heterosexual Current gender identity: female Seatbelt use: always Drives intoxicated or rides with intoxicated ross carrier driver: No Water heater temperature set < 120 degrees: Yes Working smoke detector in home: Yes Fire extinguisher in home: Yes Carbon monoxide detector in home: Yes Surgical History S/P lumpectomy, left breast Dr. Lazo Z98.890 - Other specified postprocedural states (ICD-10) Female Reproductive History Menstrual Hx Hysterectomy: No Hx Tubal Ligation: No Physical Exam Physical Exam Appearance: Reports Ill-appearing Ill-appearing: Mild Pain Distress: None Eyes: Reports ESPERANZA, EOMI, Conjunctiva clear and Conjunctiva inflammed ENT: Reports Nose normal Neck: Nonsupple Respiratory: Reports Airway patent, Breath sounds diminished and Rhonchi (Right basilar area) Cardiovascular: Reports RRR, Pulses normal and No rub GI/: Reports Soft and Nontender Musculoskeletal: Reports Normal strength Skin: Reports Warm and Dry Neurological: Reports Motor intact, Alert and Oriented Psychiatric: Reports Anxious Interpretation EKG Interpretation EKG Interpretation By: ED Physician Time of EKG #1: 11:38 Rate: Normal Rhythm: Other (undetermined ) Ectopy: None [place]: Left ST Segment: Normal Interpretation: Left Anterior fascicular bloack Radiology Interpretation Radiology Interpretation By: Radiologist Radiology Results: Positive Exam Interpreted: CT Scan Xray Comments: - Moderate size consolidative opacity in the left lower lobe with adjacent Radiology Interpretation By: Radiologist Radiology Results: Positive Exam Interpreted: Portable CXR Physician Notification Case Discussed Physician Notified: Jeana ROSA Time of Notification: 12:00 (accepted for admission. Came to see patient in the ER for evaluation and admission.) Critical Care Note Critical Care Note Total Critical Care Time (mins): 30 Comments: managing Respiratory infection with IV antibiotics, Breathing Treatments Course Course 07/09/24 05:14 07/09/24 05:14 Orders, Labs, Meds: Lab Review 07/08/24 07/08/24 09:00 09:07 WBC 15.93 H RBC 3.93 L Hgb 12.0 Hct 36.3 L MCV 92.4 MCH 30.5 MCHC 33.1 RDW Coeff of Jose 12.6 Plt Count 250 Immature Gran % (Auto) 0.5 Neut % (Auto) 83.3 H Lymph % (Auto) 6.5 L Oliver % (Auto) 8.3 Eos % (Auto) 1.2 Baso % (Auto) 0.2 Neut # (Auto) 13.3 H Lymph # (Auto) 1.0 Oliver # (Auto) 1.3 Eos # (Auto) 0.2 Baso # (Auto) 0.0 Immature Gran # (Auto) 0.1 Sodium 129.4 L Potassium 3.87 Chloride 95.1 L Carbon Dioxide 27.2 Anion Gap 10.97 BUN 8.3 Creatinine 0.82 Estimated GFR (MDRD) 68.00 BUN/Creatinine Ratio 10.12 Glucose 115.5 H Lactic Acid 0.87 Calcium 8.63 Total Bilirubin 0.71 AST 21.0 ALT 20.8 Alkaline Phosphatase 71.0 Total Creatine Kinase 32.4 Troponin I < 0.012 Total Protein 6.08 L Albumin 3.20 L Globulin 2.88 Albumin/Globulin Ratio 1.11 Procalcitonin 0.08 Influ A Molecular Assay Negative by naat Influ B Molecular Assay Negative by naat RSV Antigen Negative by naat SARS CoV-2 RNA Rapid SHANELL Negative Orders Category Date Time Status ADMIT OBSERVATION [PLACE PATIENT OBSERVATION] .TO ADMISSION 07/08/24 11:34 Active MEDSURG (MONITORED BED) EKG-(ED ONLY) Stat CARDIO 07/08/24 11:22 Completed NEBULIZER TREATMENT Stat CARDIO 07/08/24 08:49 Completed TELEMETRY MONITORING TELE CARE 07/08/24 11:34 Active ED MAILROOM ASSISTANT APPLIED .ONCE EMERGENCY 07/08/24 08:48 Active ED IV/MEDIPORT/POWERPORT .ONCE EMERGENCY 07/08/24 08:48 Active BLOOD CULTURE (ED ONLY) Stat LAB 07/08/24 09:07 Received CBC W/ AUTO DIFF Stat LAB 07/08/24 09:07 Completed COMPREHENSIVE METABOLIC PANEL Stat LAB 07/08/24 09:07 Completed COVID [SARS COV-2 RNA RAPID SHANELL] Stat LAB 07/08/24 09:00 Completed CREATINE KINASE Stat LAB 07/08/24 09:07 Completed FLU A & B MOLECULAR [FLU A/B MOLECULAR] Stat LAB 07/08/24 09:00 Completed LACTIC ACID Stat LAB 07/08/24 09:07 Completed PROCALCITONIN Stat LAB 07/08/24 09:07 Completed RSV Stat LAB 07/08/24 09:00 Completed TROPONIN I Stat LAB 07/08/24 09:07 Completed 0.9 % Sodium Chloride [Saline Flush] Meds 07/08/24 08:48 Discontinued 1 syr IVF PRN PRN Ceftriaxone 1 gm Vial [Rocephin 1 gm Vial] Meds 07/08/24 09:57 Discontinued 1 gm IVP ONCE ONE Ipratropium/Albuterol Neb [Duoneb] Meds 07/08/24 08:48 Discontinued 3 ml NEB ONCE STA Methylprednisolone Sod Succ/Pf [Solu-Medrol 125 mg] Meds 07/08/24 08:48 Discontinued 125 mg IVP ONCE ONE CHEST, 1V AP ONLY Stat RADS 07/08/24 08:[address] CHEST W/O CONTRAST Stat RADS 07/08/24 09:54 Completed Medications Generic Name Dose Route Start Last Admin Trade Name Freq PRN Reason Stop Dose Admin Acetaminophen 650 mg 07/08/24 12:20 Acetaminophen 325 Mg Tablet PO Q4H PRN Mild Pain Albuterol/Ipratropium 3 ml 07/08/24 21:00 Ipratropium/Albuterol Vial.Neb NEB RTQ4H PRN Wheezing Azelastine HCl 1 spray 07/08/24 21:00 07/08/24 20:52 Azelastine Hcl 30 Ml Nasal [place] ANGEL 1 spray BID ROCK Administration Azithromycin 500 mg 07/08/24 12:30 07/08/24 13:16 Azithromycin 250 Mg Tablet PO 07/11/24 12:29 500 mg DAILY ROCK Administration Benzonatate 200 mg 07/08/24 12:23 07/08/24 19:27 Benzonatate 100 Mg Capsule PO 200 mg TID PRN Administration Cough Budesonide 6 mg 07/09/24 09:00 Budesonide Ec 3mg Cap PO DAILY [place]OCK Bumetanide 0.5 mg 07/10/24 09:00 Bumetanide 1 Mg Tablet PO [id number] [facility] Bumetanide 0.5 mg 07/08/24 21:00 07/08/24 20:51 Bumetanide 1 Mg Tablet PO 0.5 mg [id number] [facility] Administration Ezetimibe 10 mg 07/09/24 09:00 Ezetimibe 10 Mg Tablet PO DAILY [facility] Fluticasone Propionate 2 spray 07/08/24 15:00 07/08/24 20:51 Fluticasone Propionate 16 Gm Nasal [place] ANGEL 2 spray TID [facility] Administration Gabapentin 300 mg 07/09/24 09:00 Gabapentin 300 Mg Capsule PO DAILY [facility] CEFTRIAXONE/D5W 1 GM PREMIX 1 gm in 50 mls @ 100 mls/hr 07/09/24 09:00 Rocephin 1 Gm/50 Ml D5w IV 07/12/24 08:59 DAILY [facility] Loratadine 10 mg 07/09/24 09:00 Loratadine 10 Mg Tablet PO DAILY [facility] Lorazepam 0.5 mg 07/08/24 21:00 07/08/24 20:51 Lorazepam 0.5 Mg Tablet PO 0.5 mg BEDTIME [facility] Administration Multivitamins 1 tab 07/09/24 09:00 Multivitamin 1 Tab PO DAILY [facility] Non-Formulary Medication 60 mg 07/09/24 09:00 Trospium PO DAILY [facility] Non-Formulary Medication 1,000 mcg 07/09/24 09:00 Cyanocobalamin (Vitamin B-12) PO DAILY [facility] Ondansetron HCl 4 mg 07/08/24 12:20 Ondansetron Hcl/Pf 4 Mg/2 Ml Sdv IVP Q6H PRN Nausea / Vomiting Potassium Chloride 20 meq 07/10/24 09:00 Potassium Chloride 20 Meq Tab PO [id number] [facility] Pyridoxine HCl 100 mg 07/09/24 09:00 Vitamin B-6 50 Mg Tablet PO DAILY [facility] Rivaroxaban 20 mg 07/08/24 17:00 07/08/24 17:18 Rivaroxaban 10 Mg Tablet PO 20 mg QPM [facility] Administration Sodium Chloride 1 syr 07/08/24 21:00 07/09/24 05:25 0.9% Sodium Chloride 10 Ml Disp.Syrin IVF 1 syr Q8H [facility] Administration Sotalol HCl 80 mg 07/08/24 21:00 07/08/24 20:50 Sotalol Hcl 80 Mg Tablet PO 80 mg BID [place] Administration Tamoxifen Citrate 20 mg 07/09/24 09:00 Tamoxifen Citrate 10 Mg Tablet PO DAILY [place] Tramadol HCl 50 mg 07/09/24 09:00 Tramadol Hcl 50 Mg Tablet PO DAILY [place] Discontinued Medications Generic Name Dose Route Start Last Admin Trade Name Janet PRN Reason Stop Dose Admin Albuterol/Ipratropium 3 ml 07/08/24 08:48 07/08/24 09:05 Ipratropium/Albuterol Vial.Neb NEB 07/08/24 08:49 3 ml ONCE STA Administration Bumetanide 0.5 mg 07/08/24 21:00 Bumetanide 1 Mg Tablet PO BID [place] Ceftriaxone Sodium 1 gm 07/08/24 09:57 07/08/24 10:19 Ceftriaxone 1 Gm Vial IVP 07/08/24 09:58 1 gm ONCE ONE Administration Methylprednisolone Sodium Succinate 125 mg 07/08/24 08:48 07/08/24 09:07 Methylprednisolone Sod Succ/Pf 125 Mg/2 Ml Vial IVP 07/08/24 08:49 125 mg ONCE ONE Administration Potassium Chloride 20 meq 07/09/24 09:00 Potassium Chloride 20 Meq Tab PO DAILY [place] Sodium Chloride 1 syr 07/08/24 08:48 0.9% Sodium Chloride 10 Ml Disp.Syrin IVF PRN PRN To flush IV Vital Signs: Temp Pulse Resp BP Pulse Ox O2 Flow Rate 07/08/24 11:37 2 07/08/24 08:32 97.9 F 83 20 131/73 93 L Discharge Plan Discharge Patient Disposition: PLACED OBSERVATION Discharge Problem: Community acquired bacterial pneumonia Did you review [place] REVIEW ANALYST for ALL controlled substances?: Not Applicable ED Provider: OFELIA CORNELIUS Condition: Stable
[2024-07-08] MEDS: DUONEB NEB STA (09:05)
[2024-07-08] MEDS: SOLU-MEDROL 125 MG IVP ONE (09:07)
[2024-07-08 09:15] LABS: BASOPHILS % (AUTO) 0.2 % (0.0-3.0); EOSINOPHILS # (AUTO) 0.2 K/ul (0.0-0.7); EOSINOPHILS % (AUTO) 1.2 % (0.0-7.0); HEMATOCRIT 36.3 % (37.0-47.0); IMMATURE GRANULOCYTE # (AUTO) 0.1 (0.0-1.0); IMMATURE GRANULOCYTE % (AUTO) 0.5 % (0.0-5.0); LYMPHOCYTES % (AUTO) 6.5 (10.0-50.0); MEAN CORPUSCULAR HEMOGLOBIN 30.5 pg (27.0-31.0); MEAN CORPUSCULAR HGB CONC 33.1 (31.8-35.4); MEAN CORPUSCULAR VOLUME 92.4 fl (81.0-99.0); MONOCYTES # (AUTO) 1.3 K/uL (0.4-2.0); MONOCYTES % (AUTO) 8.3 (0-10); NEUTROPHILS # (AUTO) 13.3 K/ul (2.0-6.9); NEUTROPHILS % (AUTO) 83.3 % (42.2-75.2); PLATELET COUNT 250 10^3/uL (140-440); RDW COEFFICIENT OF VARIATION 12.6 % (11.6-14.8); RED BLOOD COUNT 3.93 10^6/ul (4.20-5.40); WHITE BLOOD COUNT 15.93 K/ul (4.6-10.2)
--- NOTE | 2024-07-08 09:18 | DI ---
EXAM: PORTABLE CHEST HISTORY: Cough COMPARISON: Single-view chest 09/12/2023 FINDINGS: There is stable cardiomegaly. The aortic arch is atherosclerotic. The left lung is clear . Mass-like consolidation is seen within the right lower lobe. There is questionable trace right pl eural effusion. IMPRESSION: Stable cardiomegaly. Mass-like consolidation right lower lobe. Follow-up to resolution is recommended.
[2024-07-08 09:25] LABS: ALANINE AMINOTRANSFERASE 20.8 U/L (0-35); BILIRUBIN,TOTAL 0.71 mg/dL (0.2-1.3); BLOOD UREA NITROGEN 8.3 mg/dL (7-17); CALCIUM 8.63 mg/dL (8.4-10.2); CARBON DIOXIDE 27.2 mmol/L (22-30.0); CHLORIDE 95.1 mmol/L (98-107); CREATINE KINASE 32.4 U/L (30-135); CREATININE 0.82 mg/dL (0.60-1.30); GLUCOSE 115.5 mg/dL (74-106); POTASSIUM 3.87 mmol/L (3.5-5.1); SODIUM 129.4 mmol/L (134.5-145); TOTAL PROTEIN 6.08 g/dL (6.3-8.2)
[2024-07-08 09:37] LABS: TROPONIN I < 0.012 ng/ml (0.0000-0.120)
[2024-07-08 09:44] LABS: MOLECULAR FLU A NEGATIVE BY NAAT (NEGATIVE); RSV MOLECULAR NEGATIVE BY NAAT (NEGATIVE)
[2024-07-08 09:45] LABS: MOLECULAR FLU B NEGATIVE BY NAAT (NEGATIVE); SARS COV-2 RNA RAPID NAAT NEGATIVE (NEGATIVE)
[2024-07-08] MEDS: ROCEPHIN 1 GM VIAL IVP ONE (10:19)
--- NOTE | 2024-07-08 10:56 | CT ---
EXAM: CHEST CT WITHOUT CONTRAST 07/08/2024 HISTORY: Possible mass. TECHNIQUE: Axial CT images were obtained through the chest without the administration of intravenous contrast. Coronal and sagittal reformatted images were also submitted for interpretation. COMPARISON: CTA chest 10/25/2023. Chest radiograph 07/08/2024 FINDINGS: The lower neck is within normal limits. Major airways are patent. No pneumothorax. Small/moderate right and trace left pleural effusion with adjacent atelectasis and/or pneumonia. Moderate size cons olidative opacity in the left lower lobe with adjacent ground-glass opacities. This is likely repres enting pneumonia. Other etiologies such as infarct and neoplasm are not excluded. Short-term follow -up to ensure evolution/resolution advised. 0.5 cm nodule in the left lower lobe (series 3, image 38), unchanged. Linear atelectasis and/or scar ring in the lung bases. Evaluation of the lung parenchyma is limited by motion artifact. Possible m ild emphysematous changes. Moderate cardiomegaly. Correlation with echocardiogram advised as clinically indicated. Ectasia of t he ascending thoracic aorta measuring 3.6 cm. Ectasia of the descending thoracic aorta measuring 2.1 cm. Atherosclerosis in the aorta. Enlarged pulmonary trunk measuring 3.3 cm suggestive of pulmonary arterial hypertension. Subcarinal lymph node measuring up to 1.9 cm in short axis. This is indeterminate. Patulous esophagus. Soft tissue structures are unremarkable. The visualized portions of the upper abdomen demonstrate cholecystectomy. Small hiatal hernia. Atro phic changes in the pancreas, mild. Possible hepatic steatosis. Correlation with LFTs advised. Degenerative changes. Scoliosis. IMPRESSION: - Moderate size consolidative opacity in the left lower lobe with adjacent ground-glass opacities. T his is likely representing pneumonia. Other etiologies such as infarct and neoplasm are not excluded . Short-term follow-up to ensure evolution/resolution advised. - Small/moderate right and trace left pleural effusion with adjacent atelectasis and/or pneumonia. - Mediastinal lymphadenopathy, nonspecific. Attention on follow-up recommended. - Ectasia of the ascending thoracic aorta measuring 3.6 cm. Ectasia of the descending thoracic aorta measuring 2.1 cm. Atherosclerosis in the aorta. - Moderate/marked cardiomegaly, unchanged. Correlation with echocardiogram advised as clinically ind icated. - Possible hepatic steatosis. Correlation LFTs recommended. Cholecystectomy. All CT scans are performed using dose optimization techniques as appropriate to the performed exam an d include at least one of the following: Automated exposure control, adjustment of the mA and/or kV according t o size, and the use of iterative reconstruction technique.
[2024-07-08] MEDS ORDERED: ZOFRAN 4 MG/2 ML IVP PRN (12:20)
[2024-07-08] MEDS ORDERED: TYLENOL PO PRN (12:20)
--- NOTE | 2024-07-08 12:26 | PCM ---
Date of Service Date Seen by Provider: 07/08/24 Time Seen by Provider: 12:30 Admit Day/Time Admission Date: 07/08/24 Admission Time: 11:34 Reason for Admission Chief Complaint: COMMUNITY ACQUIRED PNEUMONIA Hospital Provider Hospital Provider: JEANA AREVALO PA-C, [facility] Primary Care Physician Primary Care Physician: MELISSA ATKINSON MD History of Present Illness History of Present Illness: Patient is a 79 year old female with pmhx of CHF, a fib, cardiomyopathy, overactive bladder, history of breast cancer, hypertension, hyperlipidemia, and anemia who presented to ER with worsening cough, and overall not feeling well for past 3 weeks. Patient states she took and completed a round of azithromycin and steroids earlier in the week. She still wasn't feeling well so she was started on levaquin, she states she's only had a couple doses of that but she cannot tell a difference. She just feels worn out overall. In ER CT chest showed left sided pneumonia. WBC count elevated. She was given rocephin. States pcn allergy was a rash. Has an allergy to tetracyclines as well. She was saturating about 90 and placed on 2L. Case Discussed With Case Discussed With: Patient's case was discussed with the ER Physicians, Dr. Mendenhall. [facility] Medical History Congestive heart failure (CHF) I50.9 - Heart failure, unspecified (ICD-10) Breast cancer C50.919 - Malignant neoplasm of unspecified site of unspecified female breast (ICD-10) Collagenous colitis diarrhea flair up in 2015 and 2018 colonoscopy reports pending from 10/28/23 budesonide pills low dose helped at the time of flair up K52.831 - Collagenous colitis (ICD-10) Hospital discharge follow-up [facility] 09/12/23-09/15/23 with acute heart failure, hypokalemia, and a-fib Z09 - Encounter for follow-up examination after completed treatment for conditions other than malignant neoplasm (ICD-10) Tick bite W57.XXXA - Bitten or stung by nonvenomous insect and other nonvenomous arthropods, initial encounter (ICD-10) Hematuria R31.9 - Hematuria, unspecified (ICD-10) Surgical History S/P lumpectomy, left breast Dr. Lazo Z98.890 - Other specified postprocedural states (ICD-10) Family History Other No known health problems Social History Smoking and tobacco status: Never smoker Alcohol intake: never Substance use type: does not use Special jennifer needs: No Agree to transfusion: Yes Adopted: No Caregiver/support person: No Foster care: No Household members: spouse Housing: house Marital status: W / Lives independently: Yes Number of children: 1 service: No alf: No Current occupational status: retired History of recent travel: No Do you think of yourself as: straight/heterosexual Current gender identity: female Seatbelt use: always Drives intoxicated or rides with intoxicated local combination truck driver: No Water heater temperature set < 120 degrees: Yes Working smoke detector in home: Yes Fire extinguisher in home: Yes Carbon monoxide detector in home: Yes Allergies Allergies Allergy/AdvReac Type Severity Reaction Status Date / Time Penicillins Allergy Unknown Unknown Verified 05/17/24 11:00 Sulfa (Sulfonamide Allergy Unknown Unknown Verified 05/17/24 11:00 Antibiotics) Tetracyclines Allergy Unknown Rash Verified 05/17/24 11:00 adhesive AdvReac Intermediate Rash Verified 05/17/24 11:00 latex AdvReac Intermediate Rash Verified 05/17/24 11:00 codeine AdvReac Verified 07/08/24 13:38 Current Medications Home Medications cetirizine 10 mg tablet (Zyrtec) 10 mg PO DAILY 03/08/18 [History Confirmed 07/08/24 Last Taken 09/12/23] qlwzoneg-gdv-eipcv acid 0.4 mg-lycopene 300 mcg-lutein 250 mcg tablet (Centrum Silver) 1 tab PO DAILY 03/08/18 [History Confirmed 07/08/24 Last Taken 09/12/23] cyanocobalamin (vitamin B-12) 1,000 mcg capsule 1,000 mcg PO QDAY 12/17/22 [History Confirmed 07/08/24 Last Taken 12/10/23] tamoxifen 20 mg tablet 20 mg PO QDAY #90 tabs 12/17/22 [Rx Confirmed 07/08/24 Last Taken 09/12/23] acetaminophen 500 mg tablet (Tylenol Extra Strength) 500 mg PO BID PRN fever or pain 03/25/23 [History Confirmed 07/08/24 Last Taken Unknown] pyridoxine (vitamin B6) 100 mg tablet 100 mg PO DAILY 03/25/23 [History Confirmed 07/08/24 Last Taken 09/12/23] sotalol 80 mg tablet 80 mg PO BID #90 tabs 01/06/24 [Rx Confirmed 07/08/24 Last Taken Unknown] celecoxib 200 mg capsule (Celebrex) 200 mg PO 3 TIMES PER WEEK #30 caps 03/06/24 [Rx Confirmed 07/08/24 Last Taken Unknown] gabapentin 300 mg capsule (Neurontin) 300 mg PO DAILY #90 caps 04/12/24 [Rx Confirmed 07/08/24 Last Taken Unknown] ezetimibe 10 mg tablet (Zetia) 10 mg PO DAILY #90 tabs 05/29/24 [Rx Confirmed 07/08/24 Last Taken Unknown] rivaroxaban 20 mg tablet (Xarelto) 20 mg PO QPM #90 tabs 06/07/24 [Rx Confirmed 07/08/24 Last Taken Unknown] benzonatate 200 mg capsule 200 mg PO TID PRN cough #40 caps 07/04/24 [Rx Confirmed 07/08/24 Last Taken Unknown] levofloxacin 500 mg tablet 500 mg PO Q24H 7 days #7 tabs 07/06/24 [Rx Confirmed 07/08/24 Last Taken Unknown] azelastine 137 mcg (0.1 %) nasal spray 1 spray intranasal BID 07/08/24 [History Confirmed 07/08/24 Last Taken Unknown] budesonide 3 mg capsule,delayed,extended release 6 mg PO DAILY 07/08/24 [History Confirmed 07/08/24 Last Taken Unknown] bumetanide 0.5 mg tablet 0.5 mg PO BID 07/08/24 [History Confirmed 07/08/24 Last Taken Unknown] fluticasone propionate 50 mcg/actuation nasal spray,suspension (Flonase Allergy Relief) 2 spray intranasal TID 07/08/24 [History Confirmed 07/08/24 Last Taken Unknown] lorazepam 0.5 mg tablet (Ativan) 0.5 mg PO QHS insomnia 07/08/24 [History Confirmed 07/08/24 Last Taken Unknown] potassium chloride 20 mEq tablet,extended release(part/cryst) 20 meq PO DAILY 07/08/24 [History Confirmed 07/08/24 Last Taken Unknown] tramadol 50 mg tablet 50 mg PO DAILY Pain 07/08/24 [History Confirmed 07/08/24 Last Taken Unknown] trospium 60 mg capsule,extended release 24 hr 60 mg PO DAILY 07/08/24 [History Confirmed 07/08/24 Last Taken Unknown] Home Acetaminophen (Acetaminophen 325 Mg Tablet) 650 mg PO Q4H PRN PRN Reason: Mild Pain Azelastine HCl (Azelastine Hcl 30 Ml Nasal [place]) 1 spray ANGEL BID [facility] Last Admin: 07/08/24 20:52 Dose: 1 spray Azithromycin (Azithromycin 250 Mg Tablet) 500 mg PO DAILY [facility] Stop: 07/11/24 12:29 Last Admin: 07/08/24 13:16 Dose: 500 mg Benzonatate (Benzonatate 100 Mg Capsule) 200 mg PO TID PRN PRN Reason: Cough Last Admin: 07/08/24 19:27 Dose: 200 mg Budesonide (Budesonide Ec 3mg Cap) 6 mg PO DAILY [facility] Bumetanide (Bumetanide 1 Mg Tablet) 0.5 mg PO MoTuThSa@0900 [facility] Bumetanide (Bumetanide 1 Mg Tablet) 0.5 mg PO MoTuThSa@2100 [facility] Last Admin: 07/08/24 20:51 Dose: 0.5 mg Ezetimibe (Ezetimibe 10 Mg Tablet) 10 mg PO DAILY [facility] Fluticasone Propionate (Fluticasone Propionate 16 Gm Nasal [place]) 2 spray ANGEL TID [facility] Last Admin: 07/08/24 20:51 Dose: 2 spray Gabapentin (Gabapentin 300 Mg Capsule) 300 mg PO DAILY [facility] CEFTRIAXONE/D5W 1 GM PREMIX (Rocephin 1 Gm/50 Ml D5w) 1 gm in 50 mls @ 100 mls/hr IV DAILY [facility] Stop: 07/12/24 08:59 Loratadine (Loratadine 10 Mg Tablet) 10 mg PO DAILY [facility] Lorazepam (Lorazepam 0.5 Mg Tablet) 0.5 mg PO BEDTIME [facility] Last Admin: 07/08/24 20:51 Dose: 0.5 mg Multivitamins (Multivitamin 1 Tab) 1 tab PO DAILY [facility] Non-Formulary Medication (Trospium) 60 mg PO DAILY [facility] Non-Formulary Medication (Cyanocobalamin (Vitamin B-12)) 1,000 mcg PO QDAY [facility] Ondansetron HCl (Ondansetron Hcl/Pf 4 Mg/2 Ml Sdv) 4 mg IVP Q6H PRN PRN Reason: Nausea / Vomiting Potassium Chloride (Potassium Chloride 20 Meq Tab) 20 meq PO MoTuThSa@0900 [facility] Pyridoxine HCl (Vitamin B-6 50 Mg Tablet) 100 mg PO DAILY [facility] Rivaroxaban (Rivaroxaban 10 Mg Tablet) 20 mg PO QPM [facility] Last Admin: 07/08/24 17:18 Dose: 20 mg Sodium Chloride (0.9% Sodium Chloride 10 Ml Disp.Syrin) 1 syr IVF Q8H [facility] Sotalol HCl (Sotalol Hcl 80 Mg Tablet) 80 mg PO BID [facility] Last Admin: 07/08/24 20:50 Dose: 80 mg Tamoxifen Citrate (Tamoxifen Citrate 10 Mg Tablet) 20 mg PO DAILY [facility] Tramadol HCl (Tramadol Hcl 50 Mg Tablet) 50 mg PO DAILY [facility] Discontinued Medications Albuterol/Ipratropium (Ipratropium/Albuterol Vial.Neb) 3 ml NEB ONCE STA Stop: 07/08/24 08:49 Last Admin: 07/08/24 09:05 Dose: 3 ml Bumetanide (Bumetanide 1 Mg Tablet) 0.5 mg PO BID [facility] Ceftriaxone Sodium (Ceftriaxone 1 Gm Vial) 1 gm IVP ONCE ONE Stop: 07/08/24 09:58 Last Admin: 07/08/24 10:19 Dose: 1 gm Methylprednisolone Sodium Succinate (Methylprednisolone Sod Succ/Pf 125 Mg/2 Ml Vial) 125 mg IVP ONCE ONE Stop: 07/08/24 08:49 Last Admin: 07/08/24 09:07 Dose: 125 mg Potassium Chloride (Potassium Chloride 20 Meq Tab) 20 meq PO DAILY [facility] Sodium Chloride (0.9% Sodium Chloride 10 Ml Disp.Syrin) 1 syr IVF PRN PRN PRN Reason: To flush IV Opioid Naive vs. Tolerant Does Patient Take Opioids?: No Is Patient Opioid Naive?: Yes What is Opioid Naive?: *Opioid Naive implies the patient is not already taking opioids or not chronically receiving opioids on a daily basis. *PRN dosing is not "usually" associated with tolerance. *Patients are at higher risk of over-sedation and aspiration. Is Patient Opioid Tolerant?: No What is Opioid Tolerant?: *Opioid Tolerance implies less than the expected response to an opioid. *Acquired tolerance is defined by the patient taking 60mg of oral morphine daily (or equianalgesic dose of another opioid) for 1 week or more. *Often associated with chronic pain. *May take more than usual dose to achieve desired pain control. Review of Systems Constitutional: Reports Fatigue and Weakness; Denies Fever Head: Reports Normocephalic and Atraumatic Cardiovascular: Denies Chest pain, Chest Pressure or Edema Respiratory: Reports Cough and Shortness of air Gastrointestinal: Denies Nausea, Vomiting or Abdominal pain Genitourinary: Denies Dysuria or Frequency Neurological: Reports Weakness; Denies Dizziness or Syncope Physical examination Most Recent Vital Signs: Most Recent Vital Signs Temperature 97.9 F 07/08/24 08:32 Temperature Source Oral 07/08/24 08:32 Pulse Rate 83 07/08/24 08:32 Respiratory Rate 20 07/08/24 08:32 Blood Pressure 131/73 07/08/24 08:32 O2 Sat by Pulse Oximetry 93 L 07/08/24 08:32 Oxygen Flow Rate 2 07/08/24 11:37 Height 5 ft 7 in 07/08/24 08:32 Weight 76.3 kg 07/08/24 08:32 Telemetry Heart Rate 80 09/15/23 07:00 Telemetry SPO2 94 09/14/23 19:00 Appearance: Positive No Apparent Distress and Alert and Oriented x3 Skin: Positive [place], Warm and Good Turgor; Negative Rashes HEENT: Positive Normocephalic and Atraumatic Neck: Positive Supple and Midline Trachea Chest/Lungs: Positive Clear to Auscultation Bilaterally; Negative Rales, Rhonci or Wheezes Heart: Positive RRR GI/: Positive Soft, Nontender, Bowel Sounds Normal and No Distention Neurological: Positive Cranial Nerves Intact, Alert, Oriented and Muscle Strength 5/5 in Upper and Lower Extremities Bilaterally Psychiatric: Positive Oriented x4, Appropriate Mood and Appropriate Affect Labs This Visit Labs This Visit: Labs This Visit 07/08/24 07/08/24 09:00 09:07 WBC 15.93 H RBC 3.93 L Hgb 12.0 Hct 36.3 L MCV 92.4 MCH 30.5 MCHC 33.1 RDW Coeff of Jose 12.6 Plt Count 250 Immature Gran % (Auto) 0.5 Neut % (Auto) 83.3 H Lymph % (Auto) 6.5 L Wolfe % (Auto) 8.3 Eos % (Auto) 1.2 Baso % (Auto) 0.2 Neut # (Auto) 13.3 H Lymph # (Auto) 1.0 Wolfe # (Auto) 1.3 Eos # (Auto) 0.2 Baso # (Auto) 0.0 Immature Gran # (Auto) 0.1 Sodium 129.4 L Potassium 3.87 Chloride 95.1 L Carbon Dioxide 27.2 Anion Gap 10.97 BUN 8.3 Creatinine 0.82 Estimated GFR (MDRD) 68.00 BUN/Creatinine Ratio 10.12 Glucose 115.5 H Lactic Acid 0.87 Calcium 8.63 Total Bilirubin 0.71 AST 21.0 ALT 20.8 Alkaline Phosphatase 71.0 Total Creatine Kinase 32.4 Troponin I < 0.012 Total Protein 6.08 L Albumin 3.20 L Globulin 2.88 Albumin/Globulin Ratio 1.11 Procalcitonin 0.08 Influ A Molecular Assay Negative by naat Influ B Molecular Assay Negative by naat RSV Antigen Negative by naat SARS CoV-2 RNA Rapid SHANELL Negative Imaging Imaging: EXAM: PORTABLE CHEST HISTORY: Cough COMPARISON: Single-view chest 09/12/2023 FINDINGS: There is stable cardiomegaly. The aortic arch is atherosclerotic. The left lung is clear. Mass-like consolidation is seen within the right lower lobe. There is questionable trace right pleural effusion. IMPRESSION: Stable cardiomegaly. Mass-like consolidation right lower lobe Follow-up to resolution is recommended. HISTORY: Possible mass. TECHNIQUE: Axial CT images were obtained through the chest without the administration of intravenous contrast. Coronal and sagittal reformatted images were also submitted for interpretation. COMPARISON: CTA chest 10/25/2023. Chest radiograph 07/08/2024 FINDINGS: The lower neck is within normal limits. Major airways are patent. No pneumot horax. Small/moderate right and trace left pleural effusion with adjacent atelectasis and/or pneumonia. Moderate size consolidative opacity in the left lower lobe with adjacent ground-glass opacities. This is likely representing pneumonia. Other etiologies such as infarct and neoplasm are not excluded. Short-term follow-up to ensure evolution/resolution advised. 0.5 cm nodule in the left lower lobe (series 3, image 38), unchanged. Linear atelectasis and/or scarring in the lung bases. Evaluation of the lung parenchyma is limited by motion artifact. Possible mild emphysematous changes. Moderate cardiomegaly. Correlation with echocardiogram advised as clinically indicated. Ectasia of the ascending thoracic aorta measuring 3.6 cm. Ectasia of the descending thoracic aorta measuring 2.1 cm. Atherosclerosis in the aorta. Enlarged pulmonary trunk measuring 3.3 cm suggestive of pulmonary arterial hypertension. Subcarinal lymph node measuring up to 1.9 cm in short axis. This is indete rminate. Patulous esophagus. Soft tissue structures are unremarkable The visualized portions of the upper abdomen demonstrate cholecystectomy. Small hiatal hernia. Atrophic changes in the pancreas, mild. Possible hepatic steatosis. Correlation with LFTs advised. Degenerative changes. Scoliosis. IMPRESSION: - Moderate size consolidative opacity in the left lower lobe with adjacent ground-glass opacities. This is likely representing pneumonia. Other etiologies such as infarct and neoplasm are not excluded. Short-term follow-up to ensure evolution/resolution advised. - Small/moderate right and trace left pleural effusion with adjacent atelectasis and/or pneumonia. - Mediastinal lymphadenopathy, nonspecific. Attention on follow-up recommended. - Ectasia of the ascending thoracic aorta measuring 3.6 cm. Ectasia of the descending thoracic aorta measuring 2.1 cm. Atherosclerosis in the aorta. - Moderate/marked cardiomegaly, unchanged. Correlation with echocardiogram advised as clinically indicated. - Possible hepatic steatosis. Correlation LFTs recommended. Cholecystectomy. Review Statement Review Statement: I have independently reviewed and interpreted the labs/EKGs/imaging that were ordered by the ER provider. I have reviewed all outside records that are available currently in our EMR including imaging/notes/labs from previous visits. Plan Plan: 1. Community acquired pneumonia, left - Failed outpatient antibiotics. PSI 107, class IV. Give rocephin and azith, based on allergies. Duonebs prn. Oxygen prn. 2. Hyponatremia, mild - Likely in setting of pna and chronic diuretics. Will monitor. 3. Hypertension - Cont home meds 4. Hx of breast cancer - Cont tamoxifen 5. A fib - rate controlled, cont home meds DVT Prophylaxis: Xarelto Time Spent: Greater than 80 minutes spent with patient, 50% of the time spent with this patient was devoted to counseling and coordination of care. [facility] minutes spent discussing advance care planning. Admit to: Obs Discussed Plan of Care with Dr. Charli Atkinson. Medications Medication Orders: Medications Ordered Category Date Time Status 0.9 % Sodium Chloride [Saline Flush] Meds 07/08/24 08:48 Active 1 syr IVF PRN PRN Acetaminophen [Tylenol] Meds 07/08/24 12:20 Ordered 650 mg PO Q4H PRN Azelastine HCl [Astelin 0.1%] Meds 07/08/24 21:00 Ordered 1 spray ANGEL BID Azithromycin [Zithromax] Meds 07/08/24 12:30 Ordered 500 mg PO DAILY Benzonatate [Tessalon Perles] Meds 07/08/24 12:23 Ordered 200 mg PO TID PRN Budesonide [Entocort EC] Meds 07/09/24 09:00 Ordered 6 mg PO DAILY Bumetanide [Bumex] Meds 07/08/24 21:00 Ordered 0.5 mg PO BID Ceftriaxone/D5w 1 gm Premix [Rocephin 1 gm/50 ml D5w] Meds 07/09/24 09:00 Ordered 1 gm in 50 ml IV DAILY Ezetimibe [Zetia] Meds 07/09/24 09:00 Ordered 10 mg PO DAILY Fluticasone Propionate [Flonase] Meds 07/08/24 15:00 Ordered 2 spray ANGEL TID Gabapentin [Neurontin] Meds 07/09/24 09:00 Ordered 300 mg PO DAILY Lorazepam [Ativan] Meds 07/08/24 21:00 Ordered 0.5 mg PO QHS Ondansetron HCl/Pf [Zofran 4 mg/2 ml] Meds 07/08/24 12:20 Ordered 4 mg IVP Q6H PRN Potassium Chloride [K-Dur] Meds 07/09/24 09:00 Ordered 20 meq PO DAILY Rivaroxaban [Xarelto] Meds 07/08/24 17:00 Ordered 20 mg PO QPM Sotalol HCl [Betapace] Meds 07/08/24 21:00 Ordered 80 mg PO BID Tramadol HCl [Ultram] Meds 07/09/24 09:00 Ordered 50 mg PO DAILY Vitamin B-6 [Pyridoxine HCl] Meds 07/09/24 09:00 Ordered 100 mg PO DAILY cetirizine [Zyrtec] Meds 07/09/24 09:00 Ordered 10 mg PO DAILY cyanocobalamin (vitamin B-12) Meds 07/08/24 12:30 Ordered 1,000 mcg PO QDAY [id number]-lutein [Centrum Silver] Meds 07/09/24 09:00 Ordered 1 tab PO DAILY tamoxifen Meds 07/09/24 09:00 Ordered 20 mg PO QDAY trospium Meds 07/09/24 09:00 Ordered 60 mg PO DAILY
[2024-07-08 12:46] VITALS: BMI 25.9
[2024-07-08] MEDS: ZITHROMAX PO SCH (13:16)
[2024-07-08] MEDS: FLONASE NAS SCH (14:30)
[2024-07-08] MEDS: XARELTO PO SCH (17:18)
[2024-07-08] MEDS: TESSALON PERLES PO PRN (19:27)
[2024-07-08] MEDS: BETAPACE PO SCH (20:50)
[2024-07-08] MEDS: BUMEX PO SCH (20:51)
[2024-07-08] MEDS: ATIVAN PO SCH (20:51)
[2024-07-08] MEDS: ASTELIN 0.1% NAS SCH (20:52)
[2024-07-08] MEDS ORDERED: BUMEX PO SCH (21:00)
[2024-07-08] MEDS ORDERED: DUONEB NEB PRN (21:00)
[2024-07-09 05:39] LABS: BASOPHILS % (AUTO) 0.1 % (0.0-3.0); HEMATOCRIT 34.2 % (37.0-47.0); HEMOGLOBIN 11.3 g/dl (12.0-16.0); IMMATURE GRANULOCYTE # (AUTO) 0.1 (0.0-1.0); IMMATURE GRANULOCYTE % (AUTO) 0.5 % (0.0-5.0); LYMPHOCYTES # (AUTO) 0.8 K/uL (0.60-3.4); LYMPHOCYTES % (AUTO) 4.2 (10.0-50.0); MEAN CORPUSCULAR HEMOGLOBIN 30.5 pg (27.0-31.0); MEAN CORPUSCULAR VOLUME 92.2 fl (81.0-99.0); MONOCYTES # (AUTO) 0.8 K/uL (0.4-2.0); NEUTROPHILS # (AUTO) 17.3 K/ul (2.0-6.9); NEUTROPHILS % (AUTO) 91.2 % (42.2-75.2); PLATELET COUNT 282 10^3/uL (140-440); RDW COEFFICIENT OF VARIATION 12.5 % (11.6-14.8); RED BLOOD COUNT 3.71 10^6/ul (4.20-5.40); WHITE BLOOD COUNT 18.92 K/ul (4.6-10.2)
[2024-07-09 05:50] LABS: ALANINE AMINOTRANSFERASE 18.8 U/L (0-35); ALBUMIN 3.11 g/dL (3.5-5.0); ALKALINE PHOSPHATASE 74.4 U/L (53-141); ASPARTATE AMINO TRANSFERASE 27.2 U/L (14-36); BILIRUBIN,TOTAL 0.43 mg/dL (0.2-1.3); BLOOD UREA NITROGEN 11.6 mg/dL (7-17); CALCIUM 8.52 mg/dL (8.4-10.2); CARBON DIOXIDE 29.5 mmol/L (22-30.0); CHLORIDE 95.1 mmol/L (98-107); CREATININE 0.74 mg/dL (0.60-1.30); GLUCOSE 130.2 mg/dL (74-106); POTASSIUM 3.63 mmol/L (3.5-5.1); SODIUM 129.1 mmol/L (134.5-145); TOTAL PROTEIN 5.83 g/dL (6.3-8.2)
[2024-07-09] MEDS: ZETIA PO SCH (09:00)
[2024-07-09] MEDS ORDERED: K-DUR PO SCH (09:00)
[2024-07-09] MEDS: NEURONTIN PO SCH (09:01)
[2024-07-09] MEDS: ULTRAM PO SCH (09:01)
[2024-07-09] MEDS: CLARITIN PO SCH (09:02)
[2024-07-09] MEDS: MULTIVITAMIN TABLET PO SCH (09:02)
[2024-07-09] MEDS: PYRIDOXINE HCL PO SCH (09:02)
[2024-07-09] MEDS: ENTOCORT EC PO SCH (09:03)
[2024-07-09] MEDS: ROCEPHIN 1 GM/50 ML D5W 1 GM/50 ML BAG IV SCH (09:04)
[2024-07-09] MEDS: TAMOXIFEN CITRATE PO SCH (09:52)
--- NOTE | 2024-07-09 10:31 | PCM.PROG ---
Date/Time Seen Date Seen by Provider: 07/09/24 Time Seen by Provider: 08:50 Provider Provider: JEANA AREVALO [facility]-C, [facility] Chief Complaint Chief Complaint: COMMUNITY ACQUIRED PNEUMONIA Subjective Subjective: Patient states she's feeling some better today, hoping to get the oxygen off. Having a productive cough. Objective Appearance: Positive No Apparent Distress and Alert and Oriented x3 Chest/Lungs: Positive Symmetrical With Equal Breath Sounds and Rhonci (mild) Heart: Positive RRR GI/: Positive Soft, Nontender, Bowel Sounds Normal and No Distention Neurological: Positive Cranial Nerves Intact, Alert and Oriented Vital Signs Vital Signs: Vital Signs: Last 24 Hours 07/08/24 11:37 07/08/24 12:25 07/08/24 12:25 Temperature 98.1 F Temperature Source Temporal Artery Scan Pulse Rate 88 Respiratory Rate 16 18 Blood Pressure Blood Pressure Mean Blood Pressure Left Arm 159/91 Blood Pressure Location Blood Pressure Position Sitting O2 Sat by Pulse Oximetry 97 Oxygen Delivery Method Nasal Cannula Nasal Cannula Oxygen Flow Rate 2 2 2 Height 5 ft 7 in Weight 75 kg Telemetry Type Telemetry Monitoring Irregular Telemetry Rate (Approximate) Telemetry Heart Rate EKG ND Interval EKG QRS Interval Telemetry Strip Reading 07/08/24 12:59 07/08/24 13:20 07/08/24 14:00 Temperature Temperature Source Pulse Rate Respiratory Rate Blood Pressure Blood Pressure Mean Blood Pressure Left Arm Blood Pressure Location Blood Pressure Position O2 Sat by Pulse Oximetry Oxygen Delivery Method Nasal Cannula Nasal Cannula Oxygen Flow Rate Height Weight Telemetry Type Remote Telemetry Telemetry Monitoring Started Irregular Telemetry Rate (Approximate) Telemetry Heart Rate 99 EKG ND Interval 0.16 EKG QRS Interval 0.08 Telemetry Strip Reading SR 07/08/24 14:00 07/08/24 15:00 07/08/24 15:53 Temperature 98.4 F Temperature Source Temporal Artery Scan Pulse Rate 85 Respiratory Rate 18 Blood Pressure 128/76 Blood Pressure Mean 93 Blood Pressure Left Arm Blood Pressure Location Left Arm Blood Pressure Position Sitting O2 Sat by Pulse Oximetry 96 Oxygen Delivery Method Nasal Cannula Nasal Cannula Nasal Cannula Oxygen Flow Rate 2 Height Weight Telemetry Type Telemetry Monitoring Irregular Telemetry Rate (Approximate) Telemetry Heart Rate EKG ND Interval EKG QRS Interval Telemetry Strip Reading 07/08/24 17:00 07/08/24 18:00 07/08/24 18:00 Temperature 98.1 F Temperature Source Temporal Artery Scan Pulse Rate 82 Respiratory Rate 16 Blood Pressure 128/74 Blood Pressure Mean 92 Blood Pressure Left Arm Blood Pressure Location Left Arm Blood Pressure Position Supine O2 Sat by Pulse Oximetry 97 Oxygen Delivery Method Nasal Cannula Nasal Cannula Nasal Cannula Oxygen Flow Rate 2 Height Weight Telemetry Type Telemetry Monitoring Irregular Telemetry Rate (Approximate) Telemetry Heart Rate EKG ND Interval EKG QRS Interval Telemetry Strip Reading 07/08/24 19:00 07/08/24 19:00 07/08/24 19:10 Temperature Temperature Source Pulse Rate Respiratory Rate 16 Blood Pressure Blood Pressure Mean Blood Pressure Left Arm Blood Pressure Location Blood Pressure Position O2 Sat by Pulse Oximetry Oxygen Delivery Method Nasal Cannula Nasal Cannula Oxygen Flow Rate 2 Height Weight Telemetry Type Remote Telemetry Telemetry Monitoring Continues Irregular Telemetry Rate (Approximate) 80-90 BPM Telemetry Heart Rate EKG ND Interval EKG QRS Interval 0.08 Telemetry Strip Reading A-FIB 07/08/24 20:00 07/08/24 21:00 07/08/24 21:08 Temperature 98.6 F Temperature Source Temporal Artery Scan Pulse Rate 88 Respiratory Rate 18 Blood Pressure 157/93 H Blood Pressure Mean 114 Blood Pressure Left Arm Blood Pressure Location Left Arm Blood Pressure Position Supine O2 Sat by Pulse Oximetry 96 Oxygen Delivery Method Nasal Cannula Nasal Cannula Room Air Oxygen Flow Rate Height Weight Telemetry Type Telemetry Monitoring Irregular Telemetry Rate (Approximate) Telemetry Heart Rate EKG ND Interval EKG QRS Interval Telemetry Strip Reading 07/08/24 22:00 07/08/24 23:00 07/09/24 00:00 Temperature Temperature Source Pulse Rate Respiratory Rate Blood Pressure Blood Pressure Mean Blood Pressure Left Arm Blood Pressure Location Blood Pressure Position O2 Sat by Pulse Oximetry Oxygen Delivery Method Room Air Room Air Room Air Oxygen Flow Rate Height Weight Telemetry Type Telemetry Monitoring Irregular Telemetry Rate (Approximate) Telemetry Heart Rate EKG ND Interval EKG QRS Interval Telemetry Strip Reading 07/09/24 00:32 07/09/24 01:00 07/09/24 02:00 Temperature Temperature Source Pulse Rate Respiratory Rate Blood Pressure Blood Pressure Mean Blood Pressure Left Arm Blood Pressure Location Blood Pressure Position O2 Sat by Pulse Oximetry Oxygen Delivery Method Room Air Room Air Oxygen Flow Rate Height Weight Telemetry Type Remote Telemetry Telemetry Monitoring Continues Irregular Telemetry Rate (Approximate) 80-90 BPM Telemetry Heart Rate EKG ND Interval EKG QRS Interval 0.09 Telemetry Strip Reading A-FIB 07/09/24 02:00 07/09/24 03:00 07/09/24 04:00 Temperature 98.7 F Temperature Source Temporal Artery Scan Pulse Rate 78 Respiratory Rate 16 Blood Pressure 128/80 Blood Pressure Mean 96 Blood Pressure Left Arm Blood Pressure Location Left Arm Blood Pressure Position Supine O2 Sat by Pulse Oximetry 96 Oxygen Delivery Method Nasal Cannula Nasal Cannula Nasal Cannula Oxygen Flow Rate 2 Height Weight Telemetry Type Telemetry Monitoring Irregular Telemetry Rate (Approximate) Telemetry Heart Rate EKG ND Interval EKG QRS Interval Telemetry Strip Reading 07/09/24 04:57 07/09/24 05:15 07/09/24 06:00 Temperature 96.9 F L Temperature Source Temporal Artery Scan Pulse Rate 77 Respiratory Rate 18 Blood Pressure 135/81 Blood Pressure Mean 99 Blood Pressure Left Arm Blood Pressure Location Left Arm Blood Pressure Position Supine O2 Sat by Pulse Oximetry 95 Oxygen Delivery Method Nasal Cannula Room Air Room Air Oxygen Flow Rate Height Weight Telemetry Type Telemetry Monitoring Irregular Telemetry Rate (Approximate) Telemetry Heart Rate EKG ND Interval EKG QRS Interval Telemetry Strip Reading 07/09/24 07:00 07/09/24 07:00 07/09/24 08:00 Temperature Temperature Source Pulse Rate Respiratory Rate Blood Pressure Blood Pressure Mean Blood Pressure Left Arm Blood Pressure Location Blood Pressure Position O2 Sat by Pulse Oximetry Oxygen Delivery Method Room Air Room Air Oxygen Flow Rate Height Weight Telemetry Type Remote Telemetry Telemetry Monitoring Continues Irregular Telemetry Rate (Approximate) 80-90BPM Telemetry Heart Rate EKG ND Interval 0.16 EKG QRS Interval 0.09 Telemetry Strip Reading Sinus arrythmia with PACs 07/09/24 08:00 07/09/24 09:00 Temperature Temperature Source Pulse Rate Respiratory Rate 17 Blood Pressure Blood Pressure Mean Blood Pressure Left Arm Blood Pressure Location Blood Pressure Position O2 Sat by Pulse Oximetry Oxygen Delivery Method Nasal Cannula Room Air Oxygen Flow Rate 2 Height Weight Telemetry Type Telemetry Monitoring Irregular Telemetry Rate (Approximate) Telemetry Heart Rate EKG ND Interval EKG QRS Interval Telemetry Strip Reading Lab Results Lab Results: Lab Results: Last 24 Hours 07/09/24 05:14 WBC 18.92 H RBC 3.71 L Hgb 11.3 L Hct 34.2 L MCV 92.2 MCH 30.5 MCHC 33.0 RDW Coeff of Jose 12.5 Plt Count 282 Immature Gran % (Auto) 0.5 Neut % (Auto) 91.2 H Lymph % (Auto) 4.2 L Gage % (Auto) 4.0 Eos % (Auto) 0.0 Baso % (Auto) 0.1 Neut # (Auto) 17.3 H Lymph # (Auto) 0.8 Gage # (Auto) 0.8 Eos # (Auto) 0.0 Baso # (Auto) 0.0 Immature Gran # (Auto) 0.1 Sodium 129.1 L Potassium 3.63 Chloride 95.1 L Carbon Dioxide 29.5 Anion Gap 8.13 BUN 11.6 Creatinine 0.74 Estimated GFR (MDRD) 76.00 BUN/Creatinine Ratio 15.67 Glucose 130.2 H Calcium 8.52 Total Bilirubin 0.43 AST 27.2 ALT 18.8 Alkaline Phosphatase 74.4 Total Protein 5.83 L Albumin 3.11 L Globulin 2.72 Albumin/Globulin Ratio 1.14 Additional Comments Additional Comments: I have independently reviewed and interpreted the labs/EKGs/imaging ordered during this hospital stay. I have reviewed outside records that are available in our EMR that pertain to medical stay including imaging/notes/labs from previous visits. Active Medications Active Medications: Medications Generic Name Dose Route Start Last Admin Trade Name Freq PRN Reason Stop Dose Admin Acetaminophen 650 mg 07/08/24 12:20 Acetaminophen 325 Mg Tablet PO Q4H PRN Mild Pain Albuterol/Ipratropium 3 ml 07/08/24 21:00 Ipratropium/Albuterol Vial.Neb NEB RTQ4H PRN Wheezing Azelastine HCl 1 spray 07/08/24 21:00 07/09/24 08:59 Azelastine Hcl 30 Ml Nasal [place] ANGEL 1 spray BID ROCK Administration Azithromycin 500 mg 07/08/24 12:30 07/09/24 09:01 Azithromycin 250 Mg Tablet PO 07/11/24 12:29 500 mg DAILY ROCK Administration Benzonatate 200 mg 07/08/24 12:23 07/08/24 19:27 Benzonatate 100 Mg Capsule PO 200 mg TID PRN Administration Cough Budesonide 6 mg 07/09/24 09:00 07/09/24 09:03 Budesonide Ec 3mg Cap PO 6 mg DAILY ROCK Administration Bumetanide 0.5 mg 07/10/24 09:00 Bumetanide 1 Mg Tablet PO MoTuThSa@0900 [facility] Bumetanide 0.5 mg 07/08/24 21:00 07/08/24 20:51 Bumetanide 1 Mg Tablet PO 0.5 mg MoTuThSa@2100 [facility] Administration Ezetimibe 10 mg 07/09/24 09:00 07/09/24 09:00 Ezetimibe 10 Mg Tablet PO 10 mg DAILY R[facility] Administration Fluticasone Propionate 2 spray 07/08/24 15:00 07/09/24 08:59 Fluticasone Propionate 16 Gm Nasal [place] ANGEL 2 spray TID ROCK Administration Gabapentin 300 mg 07/09/24 09:00 07/09/24 09:01 Gabapentin 300 Mg Capsule PO 300 mg DAILY [facility] Administration CEFTRIAXONE/D5W 1 GM PREMIX 1 gm in 50 mls @ 100 mls/hr 07/09/24 09:00 07/09/24 09:04 Rocephin 1 Gm/50 Ml D5w IV 07/12/24 08:59 100 mls/hr DAILY ROCK Administration Loratadine 10 mg 07/09/24 09:00 07/09/24 09:02 Loratadine 10 Mg Tablet PO 10 mg DAILY ROCK Administration Lorazepam 0.5 mg 07/08/24 21:00 07/08/24 20:51 Lorazepam 0.5 Mg Tablet PO 0.5 mg BEDTIME ROCK Administration Multivitamins 1 tab 07/09/24 09:00 07/09/24 09:02 Multivitamin 1 Tab PO 1 tab DAILY [facility] Administration Non-Formulary Medication 60 mg 07/09/24 09:00 07/09/24 09:02 Trospium PO 60 mg DAILY [facility] Administration Non-Formulary Medication 1,000 mcg 07/09/24 09:00 07/09/24 09:51 Cyanocobalamin (Vitamin B-12) PO Not Given DAILY [facility] Ondansetron HCl 4 mg 07/08/24 12:20 Ondansetron Hcl/Pf 4 Mg/2 Ml Sdv IVP Q6H PRN Nausea / Vomiting Potassium Chloride 20 meq 07/10/24 09:00 Potassium Chloride 20 Meq Tab PO MoTuThSa@0900 [facility] Pyridoxine HCl 100 mg 07/09/24 09:00 07/09/24 09:02 Vitamin B-6 50 Mg Tablet PO 100 mg DAILY [facility] Administration Rivaroxaban 20 mg 07/08/24 17:00 07/08/24 17:18 Rivaroxaban 10 Mg Tablet PO 20 mg QPM [facility] Administration Sodium Chloride 1 syr 07/08/24 21:00 07/09/24 05:25 0.9% Sodium Chloride 10 Ml Disp.Syrin IVF 1 syr Q8H [facility] Administration Sotalol HCl 80 mg 07/08/24 21:00 07/09/24 09:01 Sotalol Hcl 80 Mg Tablet PO 80 mg BID [facility] Administration Tamoxifen Citrate 20 mg 07/09/24 09:00 07/09/24 09:52 Tamoxifen Citrate 10 Mg Tablet PO Not Given DAILY [facility] Tramadol HCl 50 mg 07/09/24 09:00 07/09/24 09:01 Tramadol Hcl 50 Mg Tablet PO 50 mg DAILY [facility] Administration Plan Plan: 1. Community acquired pneumonia, left - Failed outpatient antibiotics. PSI 107, class IV. Give rocephin and azith, based on allergies. Duonebs prn. Oxygen prn. 2. Acute hypoxic respiratory failure in setting of CAP - Plan as above, try to wean O2 today 3. Hyponatremia, mild - Likely in setting of pna and chronic diuretics. Will monitor. 4. Hypertension - Cont home meds 5. Hx of breast cancer - Cont tamoxifen 6. A fib - rate controlled, cont home meds DVT Prophylaxis: Xarelto Review Statement Review Statement: I have personally discussed and reviewed the patient's visit/currently labs/imaging/decision making with Dr. Atkinson, my supervising attending. Greater that 50 minutes spent with patient, 50% of the time spent with this patient was devoted to counseling and coordination of care.
[2024-07-10 05:42] LABS: BASOPHILS % (AUTO) 0.1 % (0.0-3.0); EOSINOPHILS # (AUTO) 0.1 K/ul (0.0-0.7); EOSINOPHILS % (AUTO) 0.6 % (0.0-7.0); HEMATOCRIT 34.3 % (37.0-47.0); HEMOGLOBIN 11.2 g/dl (12.0-16.0); IMMATURE GRANULOCYTE # (AUTO) 0.1 (0.0-1.0); IMMATURE GRANULOCYTE % (AUTO) 0.4 % (0.0-5.0); LYMPHOCYTES # (AUTO) 2.1 K/uL (0.60-3.4); LYMPHOCYTES % (AUTO) 16.4 (10.0-50.0); MEAN CORPUSCULAR HEMOGLOBIN 30.4 pg (27.0-31.0); MEAN CORPUSCULAR HGB CONC 32.7 (31.8-35.4); MEAN CORPUSCULAR VOLUME 93.2 fl (81.0-99.0); MONOCYTES # (AUTO) 1.2 K/uL (0.4-2.0); MONOCYTES % (AUTO) 9.3 (0-10); NEUTROPHILS # (AUTO) 9.2 K/ul (2.0-6.9); NEUTROPHILS % (AUTO) 73.2 % (42.2-75.2); PLATELET COUNT 296 10^3/uL (140-440); RDW COEFFICIENT OF VARIATION 12.7 % (11.6-14.8); RED BLOOD COUNT 3.68 10^6/ul (4.20-5.40)
[2024-07-10 05:56] LABS: ALANINE AMINOTRANSFERASE 37.7 U/L (0-35); ALBUMIN 2.93 g/dL (3.5-5.0); ALKALINE PHOSPHATASE 66.5 U/L (53-141); ASPARTATE AMINO TRANSFERASE 48.2 U/L (14-36); BILIRUBIN,TOTAL 0.4 mg/dL (0.2-1.3); BLOOD UREA NITROGEN 14.3 mg/dL (7-17); CALCIUM 8.47 mg/dL (8.4-10.2); CHLORIDE 96.4 mmol/L (98-107); CREATININE 0.79 mg/dL (0.60-1.30); POTASSIUM 3.71 mmol/L (3.5-5.1); SODIUM 131.3 mmol/L (134.5-145); TOTAL PROTEIN 5.57 g/dL (6.3-8.2)
[2024-07-10] MEDS: K-DUR PO SCH (08:56)
[2024-07-10] MEDS: BUMEX PO SCH (08:57)
--- NOTE | 2024-07-10 09:21 | DCSUM ---
Admission Date Admission Date: 07/08/24 Discharge Date Discharge Date: 07/10/24 Admission Diagnosis Admission Diagnosis: 1. Community acquired pneumonia, left 2. Hyponatremia, mild 3. Hypertension - Cont home meds 4. Hx of breast cancer - Cont tamoxifen 5. A fib Discharge Diagnosis Discharge Diagnosis: 1. Community acquired pneumonia, left - Improving 2. Acute hypoxic respiratory failure in setting of CAP - Resolved 3. Hyponatremia, mild - Improving, asymptomatic, likely due to diuretic use 4. Hypertension - Chronic, stable 5. Hx of breast cancer - Cont tamoxifen 6. A fib - Chronic, stable Hospital Provider Hospital Provider: JEANA AREVALO PA-C, [facility] Primary Care Physician Primary Care Physician: MELISSA YOUSIF MD Summary of History and Physical Summary of History and Physical: Patient is a 79 year old female with pmhx of CHF, a fib, cardiomyopathy, overactive bladder, history of breast cancer, hypertension, hyperlipidemia, and anemia who presented to ER with worsening cough, and overall not feeling well for past 3 weeks. Patient states she took and completed a round of azithromycin and steroids earlier in the week. She still wasn't feeling well so she was started on levaquin, she states she's only had a couple doses of that but she cannot tell a difference. She just feels worn out overall. In ER CT chest showed left sided pneumonia. WBC count elevated. She was given rocephin. States pcn allergy was a rash. Has an allergy to tetracyclines as well. She was saturating about 90 and placed on 2L. Hospital Course Subjective: During stay, patient was treated with rocephin and azithromycin for pneumonia. She was able to be weaned off of the oxygen yesterday and has tolerated well. States she is feeling better and that cough is now productive in nature. Completed full course of azith during stay. Has 4 days remaining of augmentin. Sodium was initially found to be slightly low. Asymptomatic. Likely due to pneumonia and diuretic use. Trended up today to 131. No changes to home medications. VSS. Follow-up with PCP next week. Appearance: Pleasant, No Apparent Distress and Alert HEENT: MMM, Supple and No JVD CVS: No Murmur Abdomen: Soft, Non-Tender and No Distention Respiratory: No Dyspnea Extremities: No Edema Vital Signs: Most Recent Vital Signs Temperature 98.5 F 07/10/24 05:27 Temperature Source Temporal Artery Scan 07/10/24 05:27 Temperature Source Oral 07/08/24 08:32 Pulse Rate 80 07/10/24 05:27 Respiratory Rate 15 07/10/24 05:27 Blood Pressure 153/86 H 07/10/24 05:27 Blood Pressure Mean 108 07/10/24 05:27 Blood Pressure Left Arm 159/91 07/08/24 12:25 Blood Pressure Location Left Arm 07/10/24 05:27 Blood Pressure Position Supine 07/10/24 05:27 O2 Sat by Pulse Oximetry 92 L 07/10/24 05:27 Oxygen Delivery Method Room Air 07/10/24 08:00 Oxygen Flow Rate 2 07/09/24 08:00 Height 5 ft 7 in 07/08/24 12:25 Weight 75 kg 07/08/24 12:25 Telemetry Type Remote Telemetry 07/10/24 07:00 Telemetry Monitoring Continues 07/10/24 07:00 Irregular Telemetry Rate (Approximate) 70-80BPM 07/10/24 07:00 Telemetry Heart Rate 99 07/08/24 13:20 Telemetry SPO2 94 09/14/23 19:00 EKG VT Interval 0.16 07/09/24 07:00 EKG QRS Interval 0.10 07/10/24 07:00 Telemetry Strip Reading AFIB 07/10/24 07:00 Imaging: EXAM: CHEST CT WITHOUT CONTRAST 07/08/2024 HISTORY: Possible mass. TECHNIQUE: Axial CT images were obtained through the chest without the administration of intravenous contrast. Coronal and sagittal reformatted images were also submitted for interpretation. COMPARISON: CTA chest 10/25/2023. Chest radiograph 07/08/2024 FINDINGS: The lower neck is within normal limits. Major airways are patent. No pneumothorax. Small/moderate right and trace left pleural effusion with adjacent atelectasis and/or pneumonia. Moderate size consolidative opacity in the left lower lobe with adjacent ground-glass opacities. This is likely representing pneumonia. Other etiologies such as infarct and neoplasm are not excluded. Short-term follow-up to ensure evolution/resolution advised. 0.5 cm nodule in the left lower lobe (series 3, image 38), unchanged. Linear atelectasis and/or scarring in the lung bases. Evaluation of the lung parenchyma is limited by motion artifact. Possible mild emphysematous changes. Moderate cardiomegaly. Correlation with echocardiogram advised as clinically indicated. Ectasia of the ascending thoracic aorta measuring 3.6 cm. Ectasia of the descending thoracic aorta measuring 2.1 cm. Atherosclerosis in the aorta. Enlarged pulmonary trunk measuring 3.3 cm suggestive of pulmonary arterial hypertension. Subcarinal lymph node measuring up to 1.9 cm in short axis. This is indeterminate. Patulous esophagus. Soft tissue structures are unremarkable. The visualized portions of the upper abdomen demonstrate cholecystectomy. Small hiatal hernia. Atrophic changes in the pancreas, mild. Possible hepatic steatosis. Correlation with LFTs advised. Degenerative changes. Scoliosis. IMPRESSION: - Moderate size consolidative opacity in the left lower lobe with adjacent ground-glass opacities. This is likely representing pneumonia. Other etiologies such as infarct and neoplasm are not excluded. Short-term follow-up to ensure evolution/resolution advised. - Small/moderate right and trace left pleural effusion with adjacent atelectasis and/or pneumonia. - Mediastinal lymphadenopathy, nonspecific. Attention on follow-up recommended. - Ectasia of the ascending thoracic aorta measuring 3.6 cm. Ectasia of the descending thoracic aorta measuring 2.1 cm. Atherosclerosis in the aorta. - Moderate/marked cardiomegaly, unchanged. Correlation with echocardiogram advised as clinically indicated. - Possible hepatic steatosis. Correlation LFTs recommended. Cholecystectomy. Lab Results Last 24 Hours: 07/10/24 05:23 WBC 12.60 H D RBC 3.68 L Hgb 11.2 L Hct 34.3 L MCV 93.2 MCH 30.4 MCHC 32.7 RDW Coeff of Jose 12.7 Plt Count 296 Immature Gran % (Auto) 0.4 Neut % (Auto) 73.2 Lymph % (Auto) 16.4 [place] % (Auto) 9.3 Eos % (Auto) 0.6 Baso % (Auto) 0.1 Neut # (Auto) 9.2 H Lymph # (Auto) 2.1 [place] # (Auto) 1.2 Eos # (Auto) 0.1 Baso # (Auto) 0.0 Immature Gran # (Auto) 0.1 Sodium 131.3 L Potassium 3.71 Chloride 96.4 L Carbon Dioxide 32.0 H Anion Gap 6.61 BUN 14.3 Creatinine 0.79 Estimated GFR (MDRD) 71.00 BUN/Creatinine Ratio 18.10 Glucose 92.0 Calcium 8.47 Total Bilirubin 0.40 AST 48.2 H ALT 37.7 H Alkaline Phosphatase 66.5 Total Protein 5.57 L Albumin 2.93 L Globulin 2.64 Albumin/Globulin Ratio 1.10 Discharge Instructions Discharge Planning: Discharge Planning > 40 minutes If patient is discharged with left ventricular systolic dysfunction: NA Discharged with a beta juana? [] If no, why not? [] Discharged with an yeimi/arb? [] If no, why not? [] Diagnosis: Community Acquired Pneumonia Diet: Regular Activity: as tolerated Medication: Augmentin twice a day x 4 days Discharge Medications: Medications at Discharge (Home Meds & RX) cetirizine 10 mg tablet (Zyrtec) 10 mg PO DAILY 03/08/18 afozbbbu-eri-tbrle acid 0.4 mg-lycopene 300 mcg-lutein 250 mcg tablet (Centrum Silver) 1 tab PO DAILY 03/08/18 cyanocobalamin (vitamin B-12) 1,000 mcg capsule 1,000 mcg PO QDAY 12/17/22 tamoxifen 20 mg tablet 20 mg PO QDAY #90 tabs 12/17/22 acetaminophen 500 mg tablet (Tylenol Extra Strength) 500 mg PO BID PRN fever or pain 03/25/23 pyridoxine (vitamin B6) 100 mg tablet 100 mg PO DAILY 03/25/23 sotalol 80 mg tablet 80 mg PO BID #90 tabs 01/06/24 celecoxib 200 mg capsule (Celebrex) 200 mg PO 3 TIMES PER WEEK #30 caps 03/06/24 gabapentin 300 mg capsule (Neurontin) 300 mg PO DAILY #90 caps 04/12/24 ezetimibe 10 mg tablet (Zetia) 10 mg PO DAILY #90 tabs 05/29/24 rivaroxaban 20 mg tablet (Xarelto) 20 mg PO QPM #90 tabs 06/07/24 benzonatate 200 mg capsule 200 mg PO TID PRN cough #40 caps 07/04/24 levofloxacin 500 mg tablet 500 mg PO Q24H 7 days #7 tabs 07/06/24 azelastine 137 mcg (0.1 %) nasal spray 1 spray intranasal BID 07/08/24 budesonide 3 mg capsule,delayed,extended release 6 mg PO DAILY 07/08/24 bumetanide 0.5 mg tablet 0.5 mg PO BID 07/08/24 fluticasone propionate 50 mcg/actuation nasal spray,suspension (Flonase Allergy Relief) 2 spray intranasal TID 07/08/24 lorazepam 0.5 mg tablet (Ativan) 0.5 mg PO QHS insomnia 07/08/24 potassium chloride 20 mEq tablet,extended release(part/cryst) 20 meq PO DAILY 07/08/24 tramadol 50 mg tablet 50 mg PO DAILY Pain 07/08/24 trospium 60 mg capsule,extended release 24 hr 60 mg PO DAILY 07/08/24 Discharge Plan Discharge Discharge Orders: Discharge Patient (ONCE); Ordered 07/10/24 Ordered By: RADHA PETERSON Activity Restrictions/Additional Instructions: Diagnosis: Community Acquired Pneumonia Diet: Regular Activity: as tolerated Medication: Augmentin twice a day x 4 days Instructions: Community Acquired Pneumonia (GEN) Patient Disposition: HOME SELF-CARE Prescriptions: New amoxicillin-pot clavulanate 875-125 mg tablet 1 tab PO BID Qty: 8 0RF Continued celecoxib [Celebrex] 200 mg capsule 200 mg PO 3 TIMES PER WEEK Qty: 30 2RF ezetimibe [Zetia] 10 mg tablet 10 mg PO DAILY Qty: 90 0RF Xarelto 20 mg tablet 20 mg PO QPM Qty: 90 1RF benzonatate 200 mg capsule 200 mg PO TID PRN (Reason: cough) Qty: 40 0RF cetirizine [Zyrtec] 10 MG tablet 10 mg PO DAILY Centrum Silver 1 EACH tablet 1 tab PO DAILY azelastine 137 mcg (0.1 %) spray,non-aerosol 1 spray INTRANASAL BID Patient Comments: [NO ORIGINAL SIG] budesonide 3 mg capsule,delayed,extend.release 6 mg PO DAILY tramadol 50 mg tablet 50 mg PO DAILY potassium chloride 20 mEq tablet,ER particles/crystals 20 meq PO DAILY Rx Instructions: four times a week lorazepam [Ativan] 0.5 mg tablet 0.5 mg PO QHS bumetanide 0.5 mg tablet 0.5 mg PO BID Rx Instructions: TAKE FOUR DAYS A WEEK - MON, , , SAT trospium 60 mg capsule,extended release 24hr 60 mg PO DAILY Rx Instructions: must be taken on empty stomach at least 1 hour before a meal/food with water only fluticasone propionate [Flonase Allergy Relief] 50 mcg/actuation spray,suspension 2 spray intranasal TID Rx Instructions: administer into each nostril gabapentin [Neurontin] 300 mg capsule 300 mg PO DAILY Qty: 90 1RF cyanocobalamin (vitamin B-12) 1,000 mcg capsule 1,000 mcg PO QDAY tamoxifen 20 mg tablet 20 mg PO QDAY Qty: 90 1RF pyridoxine (vitamin B6) 100 mg tablet 100 mg PO DAILY acetaminophen [Tylenol Extra Strength] 500 mg tablet 500 mg PO BID PRN (Reason: fever or pain) sotalol 80 mg tablet 80 mg PO BID Qty: 90 2RF Discontinued levofloxacin 500 mg tablet 500 mg PO Q24H 7 Days Qty: 7 0RF Did you review [place] [employer] for ALL controlled substances?: No Discussed opioids are addictive and Narcan is available by prescription or from pharmacy.: No Condition: Stable Referrals: MELISSA YOUSIF MD [Primary Care Provider] - 07/17/24 11:00 am
[2024-07-10] MEDS: IMODIUM PO ONE (10:00)
[2024-07-10 10:14] VITALS: BP 136/84; PULSE 84; RESP 14; TEMP 97.7
[2024-07-17 09:49] LABS: SPECIMEN SOURCE URINE; STREP PNEUMO AG NEGATIVE
[2024-07-17 09:50] LABS: STEP PNEUMO ORGANISM ID NOT INDICATED
== END 2024-07-10 11:30 | disposition home or self-care (01) | DRG 193 ==
LOC: ED 08:31 → MEDSURG B 08:31
PROVIDERS: ADMIT Hospitalist; ATTEND Nurse Practitioner Family